=== PATIENT | male | born 1950 | race Caucasian/White ===

== ENCOUNTER 2017-08-15 13:28 | Inpatient (IN) | payer MEDICARE, MEDICAID ==
[~2017-08-15] VITALS: Ht 162.6 cm; Wt 78.0 kg
[~2017-08-15 13:28] MED LIST: ALBU18HF2 INH; ALLO100T PO; ASPI-611 PO; ATOR40TA PO; CLOP75TA15 PO; CYA500T PO; DOXA1TAB2 PO; ESCI10TA54 PO; HYDR-565 PO; LORA0.5T PO; METO25TA6 PO; OMEG1CAP13 PO
[2017-08-15 14:26] LABS: MEAN CORPUSCULAR HEMOGLOBIN 29.3 PG (27.0-31.0); MEAN CORPUSCULAR HGB CONC 34.4 % (33.0-36.5); MEAN CORPUSCULAR VOLUME 85.1 FL (78-98); MEAN PLATELET VOLUME 8.9 FL (7.4-10.4); PLATELET COUNT 68 X10'3 (140-440); RED CELL DISTRIBUTION WIDTH 15.7 % (11.5-14.5)
[2017-08-15 14:35] LABS: PARTIAL THROMBOPLASTIN TIME 33 SECONDS (22-32)
[2017-08-15 14:39] LABS: ALANINE AMINOTRANSFERASE 96 U/L (12-78); ALBUMIN 2.6 G/DL (3.4-5.0); ALBUMIN/GLOBULIN RATIO 0.7 (1.1-1.5); ALKALINE PHOSPHATASE 318 IU/L (46-116); ANION GAP 14 (8-16); ASPARTATE AMINO TRANSFERASE 165 U/L (10-37); BILIRUBIN,TOTAL 8.4 MG/DL (0.1-1.0); BLOOD UREA NITROGEN 163 MG/DL (7-18); CALCIUM 8.4 MG/DL (8.5-10.1); CHLORIDE 96 MMOL/L (99-107); CREATININE 4.94 MG/DL (0.60-1.10); GLUCOSE 120 MG/DL (70-104); LIPASE 888 U/L (73-393); POTASSIUM 3.8 MMOL/L (3.5-5.1); SODIUM 133 MMOL/L (135-145); TOTAL CARBON DIOXIDE 23.2 MMOL/L (24-32); TOTAL PROTEIN 6.4 G/DL (6.4-8.2); eGFR 12 ML/MIN
[2017-08-15 14:44] LABS: WHITE BLOOD COUNT 56.1 X10'3 (4.5-11.0)
[2017-08-15 15:11] LABS: ANISOCYTOSIS 1+; PLATELET ESTIMATE DECREASED
[2017-08-15 15:18] LABS: SMUDGE CELLS 2+
[2017-08-15] MEDS ORDERED: OMEG1CAP2 PO (15:22)
[2017-08-15] MEDS ORDERED: ASPI-1264 PO (15:23)
[2017-08-15 15:24] LABS: TOTAL CELLS COUNTED 100
[2017-08-15] MEDS ORDERED: BUDE10.2 INH (15:25)
[2017-08-15] MEDS ORDERED: DOXA1TAB2 PO (15:54)
[2017-08-15] MEDS ORDERED: NITR0.4T48 SL (15:56)
[2017-08-15] MEDS ORDERED: normal saline 1000ml 1,000 ML IV ONE (16:10)
[2017-08-15] MEDS ORDERED: LIDOcaine 2% 10ml TOPICAL JELLY (Urojet) MM ONE (16:15)
[2017-08-15] MEDS ORDERED: VENL-190 PO (16:18)
[2017-08-15] MEDS ORDERED: piperacillin/tazo 3.375gm/50ml 50 ML IV ONE (16:19)
[2017-08-15] MEDS ORDERED: AMOX-580 PO (16:19)
[2017-08-15] MEDS ORDERED: HYDROcodone/acetaminophen 5mg/325mg tablet PO PRN (16:35)
[2017-08-15] MEDS ORDERED: HYDROmorphone 1 mg/ml syringe IV PRN ×2 (16:35)
[2017-08-15] MEDS ORDERED: diphenhydrAMINE 50 mg/ml inj IV PRN (16:35)
[2017-08-15] MEDS ORDERED: acetaminophen 325mg tablet PO PRN (16:35)
[2017-08-15] MEDS ORDERED: mag hydrox/Alum hydrox/simeth 30ml oral suspension PO PRN (16:35)
[2017-08-15] MEDS ORDERED: magnesium hydroxide 30ml (MOM) UD suspension PO PRN (16:35)
[2017-08-15] MEDS ORDERED: metoclopramide 5 mg/ml inj IV PRN (16:35)
[2017-08-15] MEDS ORDERED: diphenhydrAMINE 25mg capsule PO PRN (16:35)
[2017-08-15] MEDS ORDERED: bisacodyl 10mg suppository rectal RC PRN (16:35)
[2017-08-15] MEDS ORDERED: acetaminophen 650mg rectal suppository RC PRN (16:35)
[2017-08-15] MEDS: ondansetron/PF 4mg/2ml inj IV PRN (17:08)
[2017-08-15] MEDS: azithromycin/NS 500mg/250ml 250 ML IV SCH (17:09)
[2017-08-15] MEDS: HYDROcodone/acetaminophen 10/325mg tab PO SCH (17:09)
[2017-08-15 17:28] LABS: HIV ANTIBODY 1&2 RAPID NON-REACTIVE (Neg)
[2017-08-15 17:51] LABS: ABG BASE EXCESS -4.7 mmol/L (-2.0-3.0); ABG HCO3 19.7 mmol/L (22.0-26.0); ABG OXYGEN SATURATION 94.6 % (95-98); ABG PCO2 (T) 32.6 mmHg (35.0-48.0); ABG PH (T) 7.397 (7.350-7.450); ABG PO2 (T) 80.1 mmHg (83-108); FCOHb 3.1 % (0.5-1.5); FMetHb 0.2 % (0.3-1.12); FO2Hb 91.5 % (94-100); PATIENT TEMPERATURE 36.6; TOTAL HEMOGLOBIN 8.1 G/dl (14.0-18.0)
[2017-08-15 17:52] LABS: INR 1.1 INR; PROTHROMBIN TIME 11.4 SECONDS (9.0-12.0)
[2017-08-15 17:53] LABS: CLARITY,URINE SLIGHTLY CLOUDY (Clear); COLOR,URINE AMBER (Yellow); GLUCOSE, URINE NEGATIVE (Neg); KETONES,URINE TRACE mg/dl (Neg); LEUKOCYTE ESTERASE ,URINE NEGATIVE (Neg); OCCULT BLOOD,URINE LARGE (Neg); PROTEIN,URINE >=300 mg/dl (Neg)
[2017-08-15 17:58] LABS: NITRITES, URINE NEGATIVE (Neg)
[2017-08-15 18:01] LABS: UA COLLECTION TYPE FOLEY CATH
[2017-08-15 18:03] LABS: BACTERIA,URINE FEW /HPF (Neg); SQUAMOUS EPITHELIAL CELL,UR FEW /LPF (FEW); WBC,URINE 0-4 /HPF (0-4)
[2017-08-15] MEDS: normal saline 1000ml 1,000 ML IV SCH (18:04)
[2017-08-15 18:24] LABS: LACTATE DEHYDROGENASE 3037 U/L (85-227); PHOSPHORUS 4.9 MG/DL (2.3-4.5)
[2017-08-15] MEDS: docusate sod 100mg capsule PO SCH (20:00)
[2017-08-15] MEDS: allopurinol 100mg tablet PO SCH (20:00)
[2017-08-15] MEDS: metoprolol tartrate 25mg tablet PO SCH (20:38)
[2017-08-15 21:38] VITALS: BP 149/78
[2017-08-15] MEDS: piperacillin-tazo 2.25gm/50ml 50 ML IV SCH (23:55)
[2017-08-16 00:25] VITALS: BP 137/74
[2017-08-16] MEDS: HYDROcodone/acetaminophen 10/325mg tab PO SCH ×4 (01:48→19:35)
[2017-08-16] MEDS: normal saline 1000ml 1,000 ML IV SCH (03:17)
[2017-08-16 06:38] LABS: BASOPHILS # (AUTO) 0.1 X10'3 (0-0.2); BASOPHILS % (AUTO) 0.2 % (0-1); EOSINOPHILS # (AUTO) 0.5 X10'3 (0-0.9); EOSINOPHILS % (AUTO) 1.1 % (0-6); HEMATOCRIT 23.7 % (42.0-52.0); HEMOGLOBIN 8.1 g/dl (14.0-17.9); LYMPHOCYTES # (AUTO) 28.1 X10'3 (1.1-4.8); LYMPHOCYTES % (AUTO) 59.8 % (21-51); MEAN CORPUSCULAR HEMOGLOBIN 29.4 PG (27.0-31.0); MEAN CORPUSCULAR VOLUME 86.5 FL (78-98); MEAN PLATELET VOLUME 9.4 FL (7.4-10.4); MONOCYTES # (AUTO) 1.2 X10'3 (0-0.9); MONOCYTES % (AUTO) 2.5 % (2-12); NEUTROPHILS # (AUTO) 17.2 X10'3 (1.8-7.7); NEUTROPHILS % (AUTO) 36.4 % (42-75); RED BLOOD COUNT 2.74 X10'6 (4.70-6.10); RED CELL DISTRIBUTION WIDTH 16.2 % (11.5-14.5)
[2017-08-16 06:40] LABS: ALANINE AMINOTRANSFERASE 85 U/L (12-78); ALBUMIN 2.1 G/DL (3.4-5.0); ALBUMIN/GLOBULIN RATIO 0.6 (1.1-1.5); ALKALINE PHOSPHATASE 239 IU/L (46-116); ANION GAP 16 (8-16); ASPARTATE AMINO TRANSFERASE 144 U/L (10-37); BLOOD UREA NITROGEN 164 MG/DL (7-18); BUN/CREATININE RATIO 29.8 (5.4-32.0); CALCIUM 7.8 MG/DL (8.5-10.1); CHLORIDE 100 MMOL/L (99-107); CREATININE 5.51 MG/DL (0.60-1.10); GLUCOSE 98 MG/DL (70-104); POTASSIUM 3.9 MMOL/L (3.5-5.1); SODIUM 134 MMOL/L (135-145); TOTAL CARBON DIOXIDE 18.5 MMOL/L (24-32); TOTAL PROTEIN 5.4 G/DL (6.4-8.2); eGFR 10 ML/MIN
[2017-08-16 07:00] VITALS: BP 145/75
[2017-08-16 07:29] LABS: NEUTROPHILS % (MANUAL) 32 % (42-75); PLATELET COUNT 50 X10'3 (140-440); TOTAL CELLS COUNTED 100; WHITE BLOOD COUNT 47.1 X10'3 (4.5-11.0)
[2017-08-16 07:30] LABS: ANISOCYTOSIS 1+; LYMPHOCYTES % (MANUAL) 68 % (21-51); PLATELET ESTIMATE DECREASED; POIKILOCYTOSIS 2+; SMUDGE CELLS 3+
[2017-08-16 07:31] LABS: BURR CELLS 2+; SCHISTOCYTES 1+
[2017-08-16] MEDS: fluticasone/vilanterol 200mcg/25mcg inhaler IH SCH (08:48)
[2017-08-16] MEDS: lactobacillus rhamnosus 10,000 MMU CELLS/CAPSULE PO SCH ×2 (08:56→17:44)
[2017-08-16] MEDS: metoprolol tartrate 25mg tablet PO SCH ×2 (08:56→19:33)
[2017-08-16] MEDS: docusate sod 100mg capsule PO SCH ×2 (08:56→19:37)
[2017-08-16] MEDS: pantoprazole 40 MG vial IV SCH (08:56)
[2017-08-16] MEDS: allopurinol 100mg tablet PO SCH ×2 (08:56→19:33)
[2017-08-16] MEDS: venlafaxine XR 75mg capsule (Q24H) PO SCH (08:56)
[2017-08-16] MEDS: piperacillin-tazo 2.25gm/50ml 50 ML IV SCH ×3 (08:57→23:48)
[2017-08-16] MEDS: ondansetron/PF 4mg/2ml inj IV PRN (09:22)
[2017-08-16 09:56] LABS: LIPASE 1004 U/L (73-393)
[2017-08-16] MEDS: azithromycin/NS 500mg/250ml 250 ML IV SCH (10:20)
[2017-08-16 11:00] VITALS: BP 117/58
[2017-08-16 15:17] LABS: ALBUMIN 2.1 G/DL (3.4-5.0); ANION GAP 12 (8-16); BLOOD UREA NITROGEN 178 MG/DL (7-18); CALCIUM 8.2 MG/DL (8.5-10.1); CHLORIDE 102 MMOL/L (99-107); CREATININE 5.94 MG/DL (0.60-1.10); GLUCOSE 97 MG/DL (70-104); POTASSIUM 4.3 MMOL/L (3.5-5.1); SODIUM 136 MMOL/L (135-145); TOTAL CARBON DIOXIDE 21.6 MMOL/L (24-32); eGFR 9 ML/MIN
[2017-08-16 15:30] LABS: CREATININE,URINE RANDOM 118.6 MG/DL
[2017-08-16 15:43] LABS: TOTAL PROTEIN,URINE RANDOM 725.6 MG/DL
[2017-08-16] MEDS: sodium chloride 0.45% 1,000 ML IV SCH ×2 (15:55→23:48)
[2017-08-16 17:01] LABS: CREATINE KINASE 258 U/L (39-308); LACTATE DEHYDROGENASE 2116 U/L (85-227)
[2017-08-16] MEDS: LORazepam 0.5 MG tablet PO PRN (17:44)
[2017-08-16 20:00] VITALS: BP 123/69
[2017-08-17] VITALS (9 sets, daily range): BP systolic 105–132; BP diastolic 59–69
[2017-08-17] MEDS: HYDROcodone/acetaminophen 10/325mg tab PO SCH ×4 (02:07→20:35)
[2017-08-17 05:56] LABS: BASOPHILS # (AUTO) 0.1 X10'3 (0-0.2); BASOPHILS % (AUTO) 0.2 % (0-1); EOSINOPHILS # (AUTO) 0.5 X10'3 (0-0.9); EOSINOPHILS % (AUTO) 0.9 % (0-6); LYMPHOCYTES # (AUTO) 28.6 X10'3 (1.1-4.8); LYMPHOCYTES % (AUTO) 55.6 % (21-51); MEAN CORPUSCULAR HEMOGLOBIN 29.2 PG (27.0-31.0); MEAN CORPUSCULAR HGB CONC 33.9 % (33.0-36.5); MEAN CORPUSCULAR VOLUME 86.3 FL (78-98); MEAN PLATELET VOLUME 9.6 FL (7.4-10.4); MONOCYTES # (AUTO) 1.4 X10'3 (0-0.9); MONOCYTES % (AUTO) 2.7 % (2-12); NEUTROPHILS # (AUTO) 20.9 X10'3 (1.8-7.7); NEUTROPHILS % (AUTO) 40.6 % (42-75); PLATELET COUNT 64 X10'3 (140-440); RED BLOOD COUNT 2.39 X10'6 (4.70-6.10); RED CELL DISTRIBUTION WIDTH 16.2 % (11.5-14.5)
[2017-08-17 06:38] LABS: HEMATOCRIT 20.6 % (42.0-52.0); WHITE BLOOD COUNT 51.5 X10'3 (4.5-11.0)
[2017-08-17 07:03] LABS: ALANINE AMINOTRANSFERASE 53 U/L (12-78); ALBUMIN/GLOBULIN RATIO 0.6 (1.1-1.5); ALKALINE PHOSPHATASE 205 IU/L (46-116); ANION GAP 16 (8-16); ASPARTATE AMINO TRANSFERASE 100 U/L (10-37); BILIRUBIN,TOTAL 3.6 MG/DL (0.1-1.0); BLOOD UREA NITROGEN 174 MG/DL (7-18); BUN/CREATININE RATIO 25.8 (5.4-32.0); CALCIUM 7.9 MG/DL (8.5-10.1); CHLORIDE 98 MMOL/L (99-107); CREATININE 6.74 MG/DL (0.60-1.10); GLUCOSE 82 MG/DL (70-104); LACTATE DEHYDROGENASE 1403 U/L (85-227); SODIUM 132 MMOL/L (135-145); TOTAL CARBON DIOXIDE 18.3 MMOL/L (24-32); TOTAL PROTEIN 5.2 G/DL (6.4-8.2); eGFR 8 ML/MIN
[2017-08-17] MEDS ORDERED: heparin 1,000 units/ml 10ml inj HE ONE ×3 (08:00→14:50)
[2017-08-17 08:27] LABS: ANISOCYTOSIS 1+; BURR CELLS 2+; PLATELET ESTIMATE DECREASED; POIKILOCYTOSIS 2+; SCHISTOCYTES 1+; SMUDGE CELLS 2+; TOTAL CELLS COUNTED 100
[2017-08-17 08:29] LABS: TOXIC GRANULATION 1+
[2017-08-17] MEDS: sodium chloride 0.45% 1,000 ML IV SCH (08:31)
[2017-08-17] MEDS: allopurinol 100mg tablet PO SCH ×2 (08:32→20:35)
[2017-08-17] MEDS: azithromycin/NS 500mg/250ml 250 ML IV SCH (08:32)
[2017-08-17] MEDS: pantoprazole 40 MG vial IV SCH (08:32)
[2017-08-17] MEDS: venlafaxine XR 75mg capsule (Q24H) PO SCH (08:33)
[2017-08-17] MEDS: docusate sod 100mg capsule PO SCH ×2 (08:33→20:00)
[2017-08-17] MEDS: metoprolol tartrate 25mg tablet PO SCH ×2 (08:33→20:35)
[2017-08-17] MEDS: fluticasone/vilanterol 200mcg/25mcg inhaler IH SCH (08:41)
[2017-08-17] MEDS: ondansetron/PF 4mg/2ml inj IV PRN (08:44)
[2017-08-17] MEDS: piperacillin-tazo 2.25gm/50ml 50 ML IV SCH ×3 (10:46→23:11)
[2017-08-17 11:11] LABS: HBSAG SCREEN Negative (Negative); HEP A AB, IGM Negative (Negative); HEP B CORE AB, IGM Negative (Negative); HEP B CORE AB, TOT Negative (Negative); HEPATITIS C ANTIBODY <0.1 s/co ratio (0.0-0.9)
[2017-08-17] MEDS ORDERED: heparin 1,000 units/ml 10ml inj IV ONE ×2 (14:25→15:30)
[2017-08-17] MEDS ORDERED: heparin 1,000unit/ml 10ml vial 0 ML ONE (14:29)
[2017-08-17] MEDS: LACTOBACILLUS RHAMNOSUS GG 15 billion unit sprinkle caps PO SCH (14:43)
[2017-08-17] MEDS ORDERED: normal saline 1000ml 100 ML IV PRN (14:46)
[2017-08-17] MEDS ORDERED: albumin (human) 25% 100ml IV 100 ML IV PRN (14:50)
[2017-08-17 21:19] LABS: OCCULT BLOOD STOOL NEGATIVE (Neg)
[2017-08-17] MEDS: sodium bicarbonate (8.4%) inj. 50 MEQ in sodium chloride 0.45% 1,000 ML IV SCH (23:00)
[2017-08-17 23:43] LABS: UREA NITROGEN 24HR,URINE 0.6 GM/24HR (7-20)
[2017-08-18] VITALS (9 sets, daily range): BP systolic 111–145; BP diastolic 59–76
[2017-08-18] MEDS: sodium bicarbonate (8.4%) inj. 50 MEQ in sodium chloride 0.45% 1,000 ML IV SCH ×4 (02:04→20:40)
[2017-08-18] MEDS: HYDROcodone/acetaminophen 10/325mg tab PO SCH ×4 (02:05→20:43)
[2017-08-18 06:14] LABS: HEMATOCRIT 27.8 % (42.0-52.0); HEMOGLOBIN 9.3 g/dl (14.0-17.9); MEAN CORPUSCULAR HEMOGLOBIN 29.3 PG (27.0-31.0); MEAN CORPUSCULAR HGB CONC 33.6 % (33.0-36.5); MEAN CORPUSCULAR VOLUME 87.4 FL (78-98); MEAN PLATELET VOLUME 9.6 FL (7.4-10.4); PLATELET COUNT 77 X10'3 (140-440); RED BLOOD COUNT 3.18 X10'6 (4.70-6.10); RED CELL DISTRIBUTION WIDTH 15.8 % (11.5-14.5)
[2017-08-18 06:41] LABS: WHITE BLOOD COUNT 55.8 X10'3 (4.5-11.0)
[2017-08-18 07:07] LABS: ALANINE AMINOTRANSFERASE 48 U/L (12-78); ALBUMIN 1.9 G/DL (3.4-5.0); ALBUMIN/GLOBULIN RATIO 0.6 (1.1-1.5); ALKALINE PHOSPHATASE 184 IU/L (46-116); ANION GAP 19 (8-16); ASPARTATE AMINO TRANSFERASE 74 U/L (10-37); BILIRUBIN,TOTAL 3.3 MG/DL (0.1-1.0); BLOOD UREA NITROGEN 190 MG/DL (7-18); BUN/CREATININE RATIO 24.3 (5.4-32.0); CALCIUM 7.6 MG/DL (8.5-10.1); CHLORIDE 98 MMOL/L (99-107); CREATININE 7.83 MG/DL (0.60-1.10); GLUCOSE 93 MG/DL (70-104); POTASSIUM 4.2 MMOL/L (3.5-5.1); SODIUM 133 MMOL/L (135-145); TOTAL CARBON DIOXIDE 15.7 MMOL/L (24-32); TOTAL PROTEIN 5.2 G/DL (6.4-8.2); eGFR 7 ML/MIN
[2017-08-18 07:35] LABS: ANISOCYTOSIS 1+; PLATELET ESTIMATE DECREASED; SMUDGE CELLS 2+; TOTAL CELLS COUNTED 100
[2017-08-18 07:36] LABS: ACANTHOCYTES 1+; SCHISTOCYTES 1+
[2017-08-18 07:37] LABS: BURR CELLS 1+; POLYCHROMASIA 1+
[2017-08-18] MEDS: docusate sod 100mg capsule PO SCH (08:00)
[2017-08-18] MEDS ORDERED: heparin 1,000 units/ml 10ml inj HE ONE ×2 (08:00)
[2017-08-18] MEDS ORDERED: heparin 1,000 units/ml 10ml inj IV ONE (08:00)
[2017-08-18] MEDS ORDERED: mannitol 20% 250ml solution IV ONE (08:00)
[2017-08-18] MEDS: heparin 1,000 units/ml 10ml inj IV ONE ×2 (08:00→09:17)
[2017-08-18] MEDS: metoprolol tartrate 25mg tablet PO SCH ×2 (08:04→20:43)
[2017-08-18] MEDS: LACTOBACILLUS RHAMNOSUS GG 15 billion unit sprinkle caps PO SCH (08:04)
[2017-08-18] MEDS: allopurinol 100mg tablet PO SCH ×2 (08:04→20:42)
[2017-08-18] MEDS: pantoprazole 40 MG vial IV SCH (08:04)
[2017-08-18] MEDS: venlafaxine XR 75mg capsule (Q24H) PO SCH (08:04)
[2017-08-18] MEDS: piperacillin-tazo 2.25gm/50ml 50 ML IV SCH (08:05)
[2017-08-18] MEDS: fluticasone/vilanterol 200mcg/25mcg inhaler IH SCH (08:52)
[2017-08-18] MEDS: azithromycin/NS 500mg/250ml 250 ML IV SCH (09:16)
[2017-08-18] MEDS ORDERED: calcium chloride inj. 2,000 MG in normal saline 250ml IV soln 250 ML IV ONE (09:20)
[2017-08-18] MEDS ORDERED: citrate dextrose 1000ml IV sol 1,000 ML HE ONE (09:20)
[2017-08-18 13:07] LABS: ABSOLUTE RETICS # 122.5 X10'3 uL (32.5-133.0); RETICULOCYTE % (AUTO) 3.8 % (0.5-2.3)
[2017-08-18 15:11] LABS: A/G RATIO 1.1 (0.7-1.7); ALBUMIN 2.4 g/dL (2.9-4.4); BETA GLOBULIN 0.7 g/dL (0.7-1.3); GAMMA GLOBULIN 0.6 g/dL (0.4-1.8); GLOBULIN, TOTAL 2.1 g/dL (2.2-3.9); M-SPIKE Not Observed g/dL (Not Observed); PROTEIN, TOTAL, SERUM 4.5 g/dL (6.0-8.5)
[2017-08-19] VITALS (13 sets, daily range): BP systolic 97–156; BP diastolic 63–73
[2017-08-19] MEDS: HYDROcodone/acetaminophen 10/325mg tab PO SCH ×5 (03:07→22:41)
[2017-08-19] MEDS: sodium bicarbonate (8.4%) inj. 50 MEQ in sodium chloride 0.45% 1,000 ML IV SCH (03:08)
[2017-08-19 05:24] LABS: BASOPHILS % (AUTO) 0.1 % (0-1); EOSINOPHILS # (AUTO) 0.5 X10'3 (0-0.9); EOSINOPHILS % (AUTO) 1.2 % (0-6); HEMATOCRIT 22.9 % (42.0-52.0); HEMOGLOBIN 7.8 g/dl (14.0-17.9); LYMPHOCYTES # (AUTO) 24.7 X10'3 (1.1-4.8); LYMPHOCYTES % (AUTO) 58.9 % (21-51); MEAN CORPUSCULAR HEMOGLOBIN 29.6 PG (27.0-31.0); MEAN CORPUSCULAR HGB CONC 33.9 % (33.0-36.5); MEAN CORPUSCULAR VOLUME 87.1 FL (78-98); MEAN PLATELET VOLUME 10.8 FL (7.4-10.4); MONOCYTES # (AUTO) 1.4 X10'3 (0-0.9); MONOCYTES % (AUTO) 3.4 % (2-12); NEUTROPHILS # (AUTO) 15.2 X10'3 (1.8-7.7); NEUTROPHILS % (AUTO) 36.4 % (42-75); PLATELET COUNT 96 X10'3 (140-440); RED BLOOD COUNT 2.63 X10'6 (4.70-6.10); RED CELL DISTRIBUTION WIDTH 15.7 % (11.5-14.5)
[2017-08-19 05:58] LABS: WHITE BLOOD COUNT 41.9 X10'3 (4.5-11.0)
[2017-08-19 06:14] LABS: ALANINE AMINOTRANSFERASE 27 U/L (12-78); ALBUMIN 2.1 G/DL (3.4-5.0); ALBUMIN/GLOBULIN RATIO 0.8 (1.1-1.5); ALKALINE PHOSPHATASE 122 IU/L (46-116); ANION GAP 10 (8-16); ASPARTATE AMINO TRANSFERASE 42 U/L (10-37); BILIRUBIN,TOTAL 1.9 MG/DL (0.1-1.0); BLOOD UREA NITROGEN 93 MG/DL (7-18); BUN/CREATININE RATIO 17.8 (5.4-32.0); CALCIUM 7.9 MG/DL (8.5-10.1); CHLORIDE 99 MMOL/L (99-107); CREATININE 5.23 MG/DL (0.60-1.10); GLUCOSE 108 MG/DL (70-104); POTASSIUM 3.4 MMOL/L (3.5-5.1); SODIUM 135 MMOL/L (135-145); TOTAL CARBON DIOXIDE 26.3 MMOL/L (24-32); TOTAL PROTEIN 4.7 G/DL (6.4-8.2); eGFR 11 ML/MIN
[2017-08-19 07:23] LABS: MICROCYTOSIS 1+; NUCLEATED RED BLOOD CELLS 1 /100WBC (0-0); PLATELET ESTIMATE DECREASED; TOTAL CELLS COUNTED 100
[2017-08-19 07:24] LABS: HYPOCHROMASIA 1+
[2017-08-19 07:25] LABS: POLYCHROMASIA 1+; SCHISTOCYTES 1+
[2017-08-19] MEDS: fluticasone/vilanterol 200mcg/25mcg inhaler IH SCH (07:30)
[2017-08-19] MEDS: pantoprazole 40 MG vial IV SCH (07:40)
[2017-08-19] MEDS: LACTOBACILLUS RHAMNOSUS GG 15 billion unit sprinkle caps PO SCH (07:40)
[2017-08-19] MEDS: venlafaxine XR 75mg capsule (Q24H) PO SCH (07:41)
[2017-08-19] MEDS: metoprolol tartrate 25mg tablet PO SCH ×2 (07:41→19:26)
[2017-08-19] MEDS: allopurinol 100mg tablet PO SCH ×2 (07:41→19:25)
[2017-08-19] MEDS ORDERED: citrate dextrose 1000ml IV sol 1,000 ML HE ONE (08:55)
[2017-08-19] MEDS ORDERED: calcium chloride inj. 2,000 MG in normal saline 250ml IV soln 250 ML IV ONE (08:55)
[2017-08-19] MEDS ORDERED: heparin 1,000unit/ml 10ml vial 10 ML IV ONE (08:56)
[2017-08-19] MEDS ORDERED: epoetin 20,000 units/ml inj IV ONE (09:00)
[2017-08-19] MEDS ORDERED: heparin 1,000 units/ml 10ml inj HE ONE ×2 (09:00)
[2017-08-19] MEDS ORDERED: traMADol 50MG tablet PO PRN (10:15)
[2017-08-19] MEDS: ondansetron/PF 4mg/2ml inj IV PRN ×2 (10:17→18:23)
[2017-08-19 11:09] LABS: COMPLEMENT C3, SERUM 118 mg/dL (82-167); COMPLEMENT C4, SERUM 22 mg/dL (14-44)
[2017-08-19 16:14] LABS: BASOPHILS # (AUTO) 0.1 X10'3 (0-0.2); BASOPHILS % (AUTO) 0.1 % (0-1); EOSINOPHILS # (AUTO) 0.4 X10'3 (0-0.9); EOSINOPHILS % (AUTO) 1.2 % (0-6); HEMOGLOBIN 7.3 g/dl (14.0-17.9); LYMPHOCYTES # (AUTO) 20.1 X10'3 (1.1-4.8); LYMPHOCYTES % (AUTO) 54.5 % (21-51); MEAN CORPUSCULAR HEMOGLOBIN 29.8 PG (27.0-31.0); MEAN CORPUSCULAR HGB CONC 34.3 % (33.0-36.5); MEAN CORPUSCULAR VOLUME 86.8 FL (78-98); MEAN PLATELET VOLUME 10.6 FL (7.4-10.4); MONOCYTES % (AUTO) 2.7 % (2-12); NEUTROPHILS # (AUTO) 15.3 X10'3 (1.8-7.7); NEUTROPHILS % (AUTO) 41.5 % (42-75); PLATELET COUNT 92 X10'3 (140-440); RED BLOOD COUNT 2.44 X10'6 (4.70-6.10); RED CELL DISTRIBUTION WIDTH 15.6 % (11.5-14.5)
[2017-08-19 16:24] LABS: WHITE BLOOD COUNT 36.9 X10'3 (4.5-11.0)
[2017-08-19 16:25] LABS: HEMATOCRIT 21.2 % (42.0-52.0)
[2017-08-19 17:10] LABS: ANTINUCLEAR ANTIBODIES Negative (Negative)
[2017-08-20] VITALS: BP 144/75
[2017-08-20] MEDS: HYDROcodone/acetaminophen 10/325mg tab PO SCH ×4 (02:00→20:02)
[2017-08-20 06:15] LABS: BASOPHILS # (AUTO) 0.1 X10'3 (0-0.2); BASOPHILS % (AUTO) 0.3 % (0-1); EOSINOPHILS # (AUTO) 0.5 X10'3 (0-0.9); EOSINOPHILS % (AUTO) 1.1 % (0-6); HEMATOCRIT 27.6 % (42.0-52.0); HEMOGLOBIN 9.4 g/dl (14.0-17.9); LYMPHOCYTES # (AUTO) 22.7 X10'3 (1.1-4.8); LYMPHOCYTES % (AUTO) 53.9 % (21-51); MEAN CORPUSCULAR HEMOGLOBIN 29.8 PG (27.0-31.0); MEAN CORPUSCULAR HGB CONC 33.9 % (33.0-36.5); MEAN CORPUSCULAR VOLUME 87.7 FL (78-98); MEAN PLATELET VOLUME 9.9 FL (7.4-10.4); MONOCYTES # (AUTO) 1.7 X10'3 (0-0.9); MONOCYTES % (AUTO) 4.1 % (2-12); NEUTROPHILS # (AUTO) 17.1 X10'3 (1.8-7.7); NEUTROPHILS % (AUTO) 40.6 % (42-75); PLATELET COUNT 127 X10'3 (140-440); RED BLOOD COUNT 3.15 X10'6 (4.70-6.10); RED CELL DISTRIBUTION WIDTH 15.8 % (11.5-14.5)
[2017-08-20 06:29] LABS: WHITE BLOOD COUNT 42.2 X10'3 (4.5-11.0)
[2017-08-20 06:48] LABS: ALANINE AMINOTRANSFERASE 33 U/L (12-78); ALBUMIN 2.5 G/DL (3.4-5.0); ALBUMIN/GLOBULIN RATIO 0.9 (1.1-1.5); ALKALINE PHOSPHATASE 93 IU/L (46-116); ANION GAP 8 (8-16); ASPARTATE AMINO TRANSFERASE 37 U/L (10-37); BILIRUBIN,TOTAL 2.2 MG/DL (0.1-1.0); BLOOD UREA NITROGEN 47 MG/DL (7-18); BUN/CREATININE RATIO 11.3 (5.4-32.0); CALCIUM 7.8 MG/DL (8.5-10.1); CHLORIDE 102 MMOL/L (99-107); CREATININE 4.16 MG/DL (0.60-1.10); GLUCOSE 98 MG/DL (70-104); POTASSIUM 3.7 MMOL/L (3.5-5.1); SODIUM 138 MMOL/L (135-145); TOTAL CARBON DIOXIDE 27.8 MMOL/L (24-32); TOTAL PROTEIN 5.3 G/DL (6.4-8.2); eGFR 14 ML/MIN
[2017-08-20] MEDS: fluticasone/vilanterol 200mcg/25mcg inhaler IH SCH (07:09)
[2017-08-20 07:24] VITALS: BP 114/58
[2017-08-20 07:25] LABS: ANISOCYTOSIS 1+; LARGE PLATELETS FEW; MICROCYTOSIS 1+; PLATELET ESTIMATE DECREASED; POLYCHROMASIA FEW; SCHISTOCYTES 1+; TOTAL CELLS COUNTED 100
[2017-08-20] MEDS: venlafaxine XR 75mg capsule (Q24H) PO SCH (08:42)
[2017-08-20] MEDS: allopurinol 100mg tablet PO SCH ×2 (08:42→20:02)
[2017-08-20] MEDS: LACTOBACILLUS RHAMNOSUS GG 15 billion unit sprinkle caps PO SCH (08:42)
[2017-08-20] MEDS: metoprolol tartrate 25mg tablet PO SCH ×2 (08:42→20:01)
[2017-08-20] MEDS: pantoprazole 40 MG vial IV SCH (08:43)
[2017-08-20] MEDS ORDERED: calcium chloride inj. 2,000 MG in normal saline 250ml IV soln 250 ML IV ONE (09:00)
[2017-08-20] MEDS ORDERED: citrate dextrose 1000ml IV sol 1,000 ML HE ONE (09:00)
[2017-08-20] MEDS ORDERED: heparin 1,000 units/ml 10ml inj IV ONE (09:45)
[2017-08-20] MEDS ORDERED: heparin 1,000 units/ml 10ml inj HE ONE (09:50)
[2017-08-20 11:00] VITALS: BP 136/73
[2017-08-20 15:07] LABS: HAPTOGLOBIN <10 mg/dL (34-200)
[2017-08-20 15:21] LABS: BASOPHILS # (AUTO) 0.1 X10'3 (0-0.2); BASOPHILS % (AUTO) 0.2 % (0-1); EOSINOPHILS # (AUTO) 0.7 X10'3 (0-0.9); EOSINOPHILS % (AUTO) 1.5 % (0-6); HEMATOCRIT 29.1 % (42.0-52.0); HEMOGLOBIN 9.6 g/dl (14.0-17.9); LYMPHOCYTES # (AUTO) 23.4 X10'3 (1.1-4.8); MEAN CORPUSCULAR HEMOGLOBIN 29.6 PG (27.0-31.0); MEAN CORPUSCULAR HGB CONC 33.1 % (33.0-36.5); MEAN CORPUSCULAR VOLUME 89.3 FL (78-98); MEAN PLATELET VOLUME 8.8 FL (7.4-10.4); MONOCYTES # (AUTO) 1.9 X10'3 (0-0.9); MONOCYTES % (AUTO) 4.2 % (2-12); NEUTROPHILS # (AUTO) 18.2 X10'3 (1.8-7.7); NEUTROPHILS % (AUTO) 41.1 % (42-75); PLATELET COUNT 146 X10'3 (140-440); RED BLOOD COUNT 3.26 X10'6 (4.70-6.10); RED CELL DISTRIBUTION WIDTH 15.9 % (11.5-14.5)
[2017-08-20 15:25] LABS: WHITE BLOOD COUNT 44.2 X10'3 (4.5-11.0)
[2017-08-20 20:00] VITALS: BP 130/69
[2017-08-20] MEDS: albuterol 2.5 MG/3 ML nebule NEB PRN (23:05)
[2017-08-21] VITALS: BP_SYST 129; BP_SYST 130; BP_DIAS 69; BP_DIAS 72
[2017-08-21] MEDS: HYDROcodone/acetaminophen 10/325mg tab PO SCH ×2 (02:05→08:00)
[2017-08-21 07:00] VITALS: BP 155/86
[2017-08-21] MEDS: fluticasone/vilanterol 200mcg/25mcg inhaler IH SCH (07:27)
[2017-08-21] MEDS ORDERED: pantoprazole 40mg Tablet.DR PO SCH (07:30)
[2017-08-21] MEDS: LACTOBACILLUS RHAMNOSUS GG 15 billion unit sprinkle caps PO SCH (07:30)
[2017-08-21] MEDS: venlafaxine XR 75mg capsule (Q24H) PO SCH (08:00)
[2017-08-21] MEDS: allopurinol 100mg tablet PO SCH ×2 (08:00→21:07)
[2017-08-21] MEDS ORDERED: cefTRIAXone 1g/NS 100ml IVPB 100 ML IV SCH (08:00)
[2017-08-21] MEDS ORDERED: calcium chloride inj. 2,000 MG in normal saline 250ml IV soln 250 ML IV ONE (08:00)
[2017-08-21] MEDS ORDERED: citrate dextrose 1000ml IV sol 1,000 ML HE ONE (08:00)
[2017-08-21] MEDS: metoprolol tartrate 25mg tablet PO SCH ×2 (08:00→21:06)
[2017-08-21] MEDS ORDERED: heparin 1,000unit/ml 10ml vial 10 ML IV ONE (08:00)
[2017-08-21] MEDS: ondansetron/PF 4mg/2ml inj IV PRN (08:24)
[2017-08-21 09:41] LABS: ALANINE AMINOTRANSFERASE 40 U/L (12-78); ALBUMIN 2.7 G/DL (3.4-5.0); ALKALINE PHOSPHATASE 123 IU/L (46-116); ANION GAP 8 (8-16); ASPARTATE AMINO TRANSFERASE 35 U/L (10-37); BILIRUBIN,TOTAL 1.6 MG/DL (0.1-1.0); BLOOD UREA NITROGEN 53 MG/DL (7-18); BUN/CREATININE RATIO 9.4 (5.4-32.0); CALCIUM 8.5 MG/DL (8.5-10.1); CHLORIDE 101 MMOL/L (99-107); CREATININE 5.65 MG/DL (0.60-1.10); GLUCOSE 151 MG/DL (70-104); LACTATE DEHYDROGENASE 326 U/L (85-227); POTASSIUM 3.6 MMOL/L (3.5-5.1); SODIUM 139 MMOL/L (135-145); TOTAL CARBON DIOXIDE 29.7 MMOL/L (24-32); TOTAL PROTEIN 5.5 G/DL (6.4-8.2); eGFR 10 ML/MIN
[2017-08-21] MEDS ORDERED: pantoprazole 40 MG vial IV SCH (09:45)
[2017-08-21 11:00] VITALS: BP 150/80
[2017-08-21] MEDS ORDERED: ondansetron/PF 4mg/2ml inj IV PRN (11:35)
[2017-08-21 15:50] LABS: BASOPHILS % (AUTO) 0 % (0-1); EOSINOPHILS # (AUTO) 0.2 X10'3 (0-0.9); EOSINOPHILS % (AUTO) 0.5 % (0-6); HEMATOCRIT 27.1 % (42.0-52.0); HEMOGLOBIN 9.5 g/dl (14.0-17.9); LYMPHOCYTES # (AUTO) 20.8 X10'3 (1.1-4.8); LYMPHOCYTES % (AUTO) 56.2 % (21-51); MEAN CORPUSCULAR HEMOGLOBIN 31.1 PG (27.0-31.0); MEAN CORPUSCULAR HGB CONC 34.9 % (33.0-36.5); MEAN CORPUSCULAR VOLUME 89.2 FL (78-98); MEAN PLATELET VOLUME 9.1 FL (7.4-10.4); MONOCYTES # (AUTO) 1.3 X10'3 (0-0.9); MONOCYTES % (AUTO) 3.5 % (2-12); NEUTROPHILS # (AUTO) 14.7 X10'3 (1.8-7.7); NEUTROPHILS % (AUTO) 39.8 % (42-75); PLATELET COUNT 155 X10'3 (140-440); RED BLOOD COUNT 3.04 X10'6 (4.70-6.10); RED CELL DISTRIBUTION WIDTH 15.6 % (11.5-14.5)
[2017-08-21 16:30] LABS: TOTAL CELLS COUNTED 100
[2017-08-21 16:32] LABS: ANISOCYTOSIS 1+; PLATELET ESTIMATE NORMAL
[2017-08-21 16:33] LABS: SCHISTOCYTES FEW
[2017-08-21 16:34] LABS: POIKILOCYTOSIS 1+; SMUDGE CELLS 3+
[2017-08-21 16:35] LABS: POLYCHROMASIA 1+
[2017-08-21 19:00] VITALS: BP 139/84
[2017-08-21] MEDS: albuterol 2.5 MG/3 ML nebule NEB PRN (20:33)
[2017-08-21] MEDS: HYDROcodone/acetaminophen 10/325mg tab PO PRN (21:10)
[2017-08-21] MEDS: LORazepam 0.5 MG tablet PO PRN (21:10)
[2017-08-22 06:20] LABS: BASOPHILS # (AUTO) 0.1 X10'3 (0-0.2); BASOPHILS % (AUTO) 0.2 % (0-1); EOSINOPHILS # (AUTO) 0.5 X10'3 (0-0.9); EOSINOPHILS % (AUTO) 1.5 % (0-6); HEMATOCRIT 26.7 % (42.0-52.0); HEMOGLOBIN 8.9 g/dl (14.0-17.9); LYMPHOCYTES # (AUTO) 17.4 X10'3 (1.1-4.8); LYMPHOCYTES % (AUTO) 56.4 % (21-51); MEAN CORPUSCULAR HEMOGLOBIN 30.2 PG (27.0-31.0); MEAN CORPUSCULAR HGB CONC 33.4 % (33.0-36.5); MEAN CORPUSCULAR VOLUME 90.3 FL (78-98); MEAN PLATELET VOLUME 8.2 FL (7.4-10.4); MONOCYTES # (AUTO) 1.2 X10'3 (0-0.9); NEUTROPHILS # (AUTO) 11.7 X10'3 (1.8-7.7); NEUTROPHILS % (AUTO) 37.9 % (42-75); PLATELET COUNT 175 X10'3 (140-440); RED BLOOD COUNT 2.96 X10'6 (4.70-6.10); RED CELL DISTRIBUTION WIDTH 17.7 % (11.5-14.5)
[2017-08-22] MEDS ORDERED: calcium chloride inj. 2,000 MG in normal saline 250ml IV soln 250 ML IV ONE (06:45)
[2017-08-22] MEDS ORDERED: citrate dextrose 1000ml IV sol 1,000 ML HE ONE (06:45)
[2017-08-22 07:01] LABS: WHITE BLOOD COUNT 30.8 X10'3 (4.5-11.0)
[2017-08-22 07:09] LABS: ALANINE AMINOTRANSFERASE 37 U/L (12-78); ALBUMIN 2.6 G/DL (3.4-5.0); ALBUMIN/GLOBULIN RATIO 0.9 (1.1-1.5); ALKALINE PHOSPHATASE 95 IU/L (46-116); ANION GAP 8 (8-16); ASPARTATE AMINO TRANSFERASE 37 U/L (10-37); BILIRUBIN,TOTAL 1.4 MG/DL (0.1-1.0); BLOOD UREA NITROGEN 30 MG/DL (7-18); BUN/CREATININE RATIO 7.7 (5.4-32.0); CALCIUM 8.5 MG/DL (8.5-10.1); CHLORIDE 102 MMOL/L (99-107); CREATININE 3.89 MG/DL (0.60-1.10); GLUCOSE 125 MG/DL (70-104); LACTATE DEHYDROGENASE 266 U/L (85-227); POTASSIUM 3.3 MMOL/L (3.5-5.1); SODIUM 139 MMOL/L (135-145); TOTAL CARBON DIOXIDE 29.2 MMOL/L (24-32); TOTAL PROTEIN 5.4 G/DL (6.4-8.2); eGFR 15 ML/MIN
[2017-08-22 07:26] LABS: LYMPHOCYTES % (MANUAL) 57 % (21-51); NEUTROPHILS % (MANUAL) 39 % (42-75); TOTAL CELLS COUNTED 100
[2017-08-22 07:27] LABS: ANISOCYTOSIS 2+; MONOCYTES % (MANUAL) 4 % (2-12); PLATELET ESTIMATE NORMAL; POLYCHROMASIA 1+; SMUDGE CELLS 3+
[2017-08-22 07:36] VITALS: BP 134/86
[2017-08-22] MEDS: fluticasone/vilanterol 200mcg/25mcg inhaler IH SCH (08:21)
[2017-08-22] MEDS: LACTOBACILLUS RHAMNOSUS GG 15 billion unit sprinkle caps PO SCH (10:39)
[2017-08-22] MEDS: allopurinol 100mg tablet PO SCH ×2 (10:39→20:36)
[2017-08-22] MEDS: metoprolol tartrate 25mg tablet PO SCH ×2 (10:40→20:36)
[2017-08-22] MEDS: venlafaxine XR 75mg capsule (Q24H) PO SCH (10:40)
[2017-08-22] MEDS: pantoprazole 40mg Tablet.DR PO SCH (10:42)
[2017-08-22 11:00] VITALS: BP 159/76
[2017-08-22] MEDS: HYDROcodone/acetaminophen 10/325mg tab PO PRN (16:02)
[2017-08-22 19:00] VITALS: BP 141/71
[2017-08-22 20:14] LABS: BASOPHILS % (AUTO) 0.1 % (0-1); EOSINOPHILS # (AUTO) 0.5 X10'3 (0-0.9); EOSINOPHILS % (AUTO) 1.8 % (0-6); HEMATOCRIT 27.1 % (42.0-52.0); HEMOGLOBIN 9.1 g/dl (14.0-17.9); LYMPHOCYTES # (AUTO) 13.4 X10'3 (1.1-4.8); LYMPHOCYTES % (AUTO) 51.2 % (21-51); MEAN CORPUSCULAR HEMOGLOBIN 30.2 PG (27.0-31.0); MEAN CORPUSCULAR HGB CONC 33.5 % (33.0-36.5); MEAN CORPUSCULAR VOLUME 90.3 FL (78-98); MEAN PLATELET VOLUME 8.7 FL (7.4-10.4); MONOCYTES % (AUTO) 3.7 % (2-12); NEUTROPHILS # (AUTO) 11.3 X10'3 (1.8-7.7); NEUTROPHILS % (AUTO) 43.2 % (42-75); PLATELET COUNT 175 X10'3 (140-440); RED BLOOD COUNT 3.01 X10'6 (4.70-6.10); RED CELL DISTRIBUTION WIDTH 17.4 % (11.5-14.5)
[2017-08-22 20:17] LABS: WHITE BLOOD COUNT 26.2 X10'3 (4.5-11.0)
[2017-08-23] VITALS (14 sets, daily range): BP systolic 108–174; BP diastolic 69–94
[2017-08-23] MEDS: temazepam 15mg capsule PO PRN (01:25)
[2017-08-23 06:12] LABS: BASOPHILS # (AUTO) 0.1 X10'3 (0-0.2); BASOPHILS % (AUTO) 0.3 % (0-1); EOSINOPHILS # (AUTO) 0.4 X10'3 (0-0.9); EOSINOPHILS % (AUTO) 1.7 % (0-6); HEMATOCRIT 23.9 % (42.0-52.0); HEMOGLOBIN 7.9 g/dl (14.0-17.9); LYMPHOCYTES # (AUTO) 13.1 X10'3 (1.1-4.8); LYMPHOCYTES % (AUTO) 58.2 % (21-51); MEAN CORPUSCULAR HEMOGLOBIN 30.3 PG (27.0-31.0); MEAN CORPUSCULAR HGB CONC 33.3 % (33.0-36.5); MEAN CORPUSCULAR VOLUME 91.1 FL (78-98); MEAN PLATELET VOLUME 8.9 FL (7.4-10.4); MONOCYTES % (AUTO) 4.3 % (2-12); NEUTROPHILS % (AUTO) 35.5 % (42-75); PLATELET COUNT 157 X10'3 (140-440); RED BLOOD COUNT 2.62 X10'6 (4.70-6.10); WHITE BLOOD COUNT 22.4 X10'3 (4.5-11.0)
[2017-08-23 06:26] LABS: ALANINE AMINOTRANSFERASE 35 U/L (12-78); ALBUMIN 2.5 G/DL (3.4-5.0); ALKALINE PHOSPHATASE 96 IU/L (46-116); ANION GAP 6 (8-16); ASPARTATE AMINO TRANSFERASE 34 U/L (10-37); BILIRUBIN,TOTAL 1.1 MG/DL (0.1-1.0); BLOOD UREA NITROGEN 43 MG/DL (7-18); BUN/CREATININE RATIO 8.5 (5.4-32.0); CALCIUM 8.3 MG/DL (8.5-10.1); CHLORIDE 100 MMOL/L (99-107); CREATININE 5.03 MG/DL (0.60-1.10); GLUCOSE 91 MG/DL (70-104); LACTATE DEHYDROGENASE 220 U/L (85-227); POTASSIUM 3.6 MMOL/L (3.5-5.1); SODIUM 139 MMOL/L (135-145); TOTAL PROTEIN 4.9 G/DL (6.4-8.2); eGFR 11 ML/MIN
[2017-08-23] MEDS: venlafaxine XR 75mg capsule (Q24H) PO SCH (07:36)
[2017-08-23] MEDS: LACTOBACILLUS RHAMNOSUS GG 15 billion unit sprinkle caps PO SCH (07:37)
[2017-08-23] MEDS: allopurinol 100mg tablet PO SCH ×2 (07:37→20:30)
[2017-08-23] MEDS: pantoprazole 40mg Tablet.DR PO SCH (07:37)
[2017-08-23] MEDS: metoprolol tartrate 25mg tablet PO SCH ×2 (07:38→20:30)
[2017-08-23] MEDS ORDERED: normal saline 1000ml 100 ML IV PRN (07:49)
[2017-08-23] MEDS ORDERED: normal saline 1000ml 250 ML IV PRN (07:49)
[2017-08-23] MEDS ORDERED: epoetin 20,000 units/ml inj IV ONE (07:50)
[2017-08-23] MEDS: fluticasone/vilanterol 200mcg/25mcg inhaler IH SCH (08:20)
[2017-08-23] MEDS: HYDROcodone/acetaminophen 10/325mg tab PO PRN ×2 (13:16→20:29)
[2017-08-23] MEDS ORDERED: epoetin 20,000 units/ml inj IV SCH (14:40)
[2017-08-23] MEDS ORDERED: LIDOcaine 1%/PF (10mg/ml) 5ml vial ONE (15:11)
[2017-08-23] MEDS ORDERED: heparin 1,000 units/ml 10ml inj ICATH ONE (15:20)
[2017-08-23] MEDS ORDERED: heparin 1,000unit/ml 10ml vial 10 ML ONE (15:20)
[2017-08-23] MEDS ORDERED: fentaNYL/PF 50MCG/1 ML 2ML syringe IV PRN (15:20)
[2017-08-23] MEDS ORDERED: midazolam 2 mg/2 ml injection IV PRN (15:20)
[2017-08-23] MEDS ORDERED: LIDOcaine 1%/PF (10mg/ml) 5ml vial SQ ONE (15:20)
[2017-08-23] MEDS ORDERED: fentaNYL/PF 50MCG/1 ML 2ML syringe ONE ×2 (15:22→15:30)
[2017-08-23] MEDS ORDERED: midazolam 2 mg/2 ml injection ONE ×2 (15:22→15:30)
[2017-08-23] MEDS: heparin, porcine 5000 units/ml vial SQ SCH (20:32)
[2017-08-23 20:41] LABS: ABSOLUTE RETICS # 312600 /CUMM (23000-93000); BASOPHILS # (AUTO) 0.1 X10'3 (0-0.2); BASOPHILS % (AUTO) 0.2 % (0-1); EOSINOPHILS # (AUTO) 0.3 X10'3 (0-0.9); EOSINOPHILS % (AUTO) 1.3 % (0-6); HEMOGLOBIN 8.7 g/dl (14.0-17.9); LYMPHOCYTES # (AUTO) 11.8 X10'3 (1.1-4.8); LYMPHOCYTES % (AUTO) 55.9 % (21-51); MEAN CORPUSCULAR HEMOGLOBIN 30.5 PG (27.0-31.0); MEAN CORPUSCULAR HGB CONC 33.4 % (33.0-36.5); MEAN CORPUSCULAR VOLUME 91.2 FL (78-98); MEAN PLATELET VOLUME 8.4 FL (7.4-10.4); MONOCYTES # (AUTO) 0.9 X10'3 (0-0.9); MONOCYTES % (AUTO) 4.1 % (2-12); NEUTROPHILS # (AUTO) 8.2 X10'3 (1.8-7.7); NEUTROPHILS % (AUTO) 38.5 % (42-75); PLATELET COUNT 177 X10'3 (140-440); RED BLOOD COUNT 2.86 X10'6 (4.70-6.10); RETICULOCYTE % (AUTO) 10.9 % (0.5-1.5); WHITE BLOOD COUNT 21.2 X10'3 (4.5-11.0)
[2017-08-24] VITALS (10 sets, daily range): BP systolic 134–193; BP diastolic 81–97
[2017-08-24] MEDS: LORazepam 0.5 MG tablet PO PRN (04:20)
[2017-08-24 06:19] LABS: BASOPHILS # (AUTO) 0.1 X10'3 (0-0.2); BASOPHILS % (AUTO) 0.3 % (0-1); EOSINOPHILS # (AUTO) 0.4 X10'3 (0-0.9); EOSINOPHILS % (AUTO) 1.8 % (0-6); HEMATOCRIT 24.2 % (42.0-52.0); LYMPHOCYTES # (AUTO) 12.9 X10'3 (1.1-4.8); LYMPHOCYTES % (AUTO) 58.2 % (21-51); MEAN CORPUSCULAR HEMOGLOBIN 30.3 PG (27.0-31.0); MEAN CORPUSCULAR HGB CONC 33.1 % (33.0-36.5); MEAN CORPUSCULAR VOLUME 91.6 FL (78-98); MEAN PLATELET VOLUME 8.3 FL (7.4-10.4); MONOCYTES % (AUTO) 4.5 % (2-12); NEUTROPHILS # (AUTO) 7.8 X10'3 (1.8-7.7); NEUTROPHILS % (AUTO) 35.2 % (42-75); PLATELET COUNT 182 X10'3 (140-440); RED BLOOD COUNT 2.64 X10'6 (4.70-6.10); RED CELL DISTRIBUTION WIDTH 20.7 % (11.5-14.5); WHITE BLOOD COUNT 22.1 X10'3 (4.5-11.0)
[2017-08-24 06:36] LABS: ALANINE AMINOTRANSFERASE 25 U/L (12-78); ALBUMIN 2.5 G/DL (3.4-5.0); ALKALINE PHOSPHATASE 103 IU/L (46-116); ANION GAP 5 (8-16); ASPARTATE AMINO TRANSFERASE 28 U/L (10-37); BILIRUBIN,TOTAL 1.4 MG/DL (0.1-1.0); BLOOD UREA NITROGEN 29 MG/DL (7-18); BUN/CREATININE RATIO 7.6 (5.4-32.0); CALCIUM 8.1 MG/DL (8.5-10.1); CHLORIDE 101 MMOL/L (99-107); CREATININE 3.82 MG/DL (0.60-1.10); GLUCOSE 92 MG/DL (70-104); LACTATE DEHYDROGENASE 257 U/L (85-227); POTASSIUM 3.7 MMOL/L (3.5-5.1); SODIUM 136 MMOL/L (135-145); TOTAL CARBON DIOXIDE 29.6 MMOL/L (24-32); TOTAL PROTEIN 5.1 G/DL (6.4-8.2); eGFR 16 ML/MIN
[2017-08-24 06:58] LABS: ANISOCYTOSIS 3+; LYMPHOCYTES % (MANUAL) 64 % (21-51); MONOCYTES % (MANUAL) 6 % (2-12); NEUTROPHILS % (MANUAL) 30 % (42-75); PLATELET ESTIMATE NORMAL; SCHISTOCYTES 1+; SMUDGE CELLS 3+; TOTAL CELLS COUNTED 100
[2017-08-24] MEDS ORDERED: citrate dextrose 1000ml IV sol 1,000 ML HE ONE (08:00)
[2017-08-24] MEDS ORDERED: calcium chloride inj. 2,000 MG in normal saline 250ml IV soln 250 ML IV ONE (08:00)
[2017-08-24] MEDS: heparin, porcine 5000 units/ml vial SQ SCH (08:00)
[2017-08-24] MEDS: LACTOBACILLUS RHAMNOSUS GG 15 billion unit sprinkle caps PO SCH (08:15)
[2017-08-24] MEDS: venlafaxine XR 75mg capsule (Q24H) PO SCH (08:15)
[2017-08-24] MEDS: pantoprazole 40mg Tablet.DR PO SCH (08:16)
[2017-08-24] MEDS: allopurinol 100mg tablet PO SCH ×2 (08:16→20:16)
[2017-08-24] MEDS: metoprolol tartrate 25mg tablet PO SCH ×2 (08:19→20:15)
[2017-08-24] MEDS: HYDROcodone/acetaminophen 10/325mg tab PO PRN ×2 (08:22→20:15)
[2017-08-24] MEDS ORDERED: epoetin 20,000 units/ml inj IV ONE (09:00)
[2017-08-24] MEDS: albuterol 2.5 MG/3 ML nebule NEB PRN (09:05)
[2017-08-24] MEDS: fluticasone/vilanterol 200mcg/25mcg inhaler IH SCH (09:06)
[2017-08-24] MEDS: temazepam 15mg capsule PO PRN (23:38)
[2017-08-24 23:52] LABS: BASOPHILS # (AUTO) 0.1 X10'3 (0-0.2); BASOPHILS % (AUTO) 0.3 % (0-1); EOSINOPHILS # (AUTO) 0.5 X10'3 (0-0.9); EOSINOPHILS % (AUTO) 2.2 % (0-6); HEMATOCRIT 24.4 % (42.0-52.0); HEMOGLOBIN 8.1 g/dl (14.0-17.9); LYMPHOCYTES # (AUTO) 12.5 X10'3 (1.1-4.8); LYMPHOCYTES % (AUTO) 55.6 % (21-51); MEAN CORPUSCULAR HEMOGLOBIN 30.4 PG (27.0-31.0); MEAN CORPUSCULAR HGB CONC 33.3 % (33.0-36.5); MEAN CORPUSCULAR VOLUME 91.1 FL (78-98); MEAN PLATELET VOLUME 8.4 FL (7.4-10.4); MONOCYTES # (AUTO) 0.9 X10'3 (0-0.9); MONOCYTES % (AUTO) 4.1 % (2-12); NEUTROPHILS # (AUTO) 8.5 X10'3 (1.8-7.7); NEUTROPHILS % (AUTO) 37.8 % (42-75); PLATELET COUNT 167 X10'3 (140-440); RED BLOOD COUNT 2.67 X10'6 (4.70-6.10); RED CELL DISTRIBUTION WIDTH 18.8 % (11.5-14.5); WHITE BLOOD COUNT 22.5 X10'3 (4.5-11.0)
[2017-08-25] VITALS: BP 154/81
[2017-08-25 06:03] LABS: BASOPHILS # (AUTO) 0.1 X10'3 (0-0.2); BASOPHILS % (AUTO) 0.5 % (0-1); EOSINOPHILS # (AUTO) 0.6 X10'3 (0-0.9); HEMATOCRIT 24.8 % (42.0-52.0); HEMOGLOBIN 8.4 g/dl (14.0-17.9); LYMPHOCYTES # (AUTO) 12.5 X10'3 (1.1-4.8); LYMPHOCYTES % (AUTO) 58.9 % (21-51); MEAN CORPUSCULAR HEMOGLOBIN 30.7 PG (27.0-31.0); MEAN CORPUSCULAR HGB CONC 33.7 % (33.0-36.5); MEAN PLATELET VOLUME 10.4 FL (7.4-10.4); MONOCYTES # (AUTO) 0.9 X10'3 (0-0.9); MONOCYTES % (AUTO) 4.1 % (2-12); NEUTROPHILS # (AUTO) 7.1 X10'3 (1.8-7.7); NEUTROPHILS % (AUTO) 33.5 % (42-75); PLATELET COUNT 103 X10'3 (140-440); RED BLOOD COUNT 2.73 X10'6 (4.70-6.10); RED CELL DISTRIBUTION WIDTH 18.8 % (11.5-14.5); WHITE BLOOD COUNT 21.3 X10'3 (4.5-11.0)
[2017-08-25 06:25] LABS: ALANINE AMINOTRANSFERASE 32 U/L (12-78); ALBUMIN 2.8 G/DL (3.4-5.0); ALBUMIN/GLOBULIN RATIO 1.1 (1.1-1.5); ALKALINE PHOSPHATASE 80 IU/L (46-116); ANION GAP 5 (8-16); ASPARTATE AMINO TRANSFERASE 28 U/L (10-37); BILIRUBIN,TOTAL 1.3 MG/DL (0.1-1.0); BLOOD UREA NITROGEN 32 MG/DL (7-18); CALCIUM 8.5 MG/DL (8.5-10.1); CHLORIDE 102 MMOL/L (99-107); GLUCOSE 87 MG/DL (70-104); LACTATE DEHYDROGENASE 227 U/L (85-227); POTASSIUM 3.8 MMOL/L (3.5-5.1); SODIUM 139 MMOL/L (135-145); TOTAL CARBON DIOXIDE 31.9 MMOL/L (24-32); TOTAL PROTEIN 5.4 G/DL (6.4-8.2); eGFR 13 ML/MIN
[2017-08-25] MEDS ORDERED: epoetin 20,000 units/ml inj IV SCH (08:00)
[2017-08-25] MEDS ORDERED: normal saline 1000ml 250 ML IV PRN (08:00)
[2017-08-25] MEDS ORDERED: heparin 1,000 units/ml 10ml inj HE ONE ×2 (08:00)
[2017-08-25] MEDS: metoprolol tartrate 25mg tablet PO SCH ×2 (08:00→19:35)
[2017-08-25 08:14] VITALS: BP 154/82
[2017-08-25] MEDS: fluticasone/vilanterol 200mcg/25mcg inhaler IH SCH (09:07)
[2017-08-25] MEDS: albuterol 2.5 MG/3 ML nebule NEB PRN (09:07)
[2017-08-25] MEDS: pantoprazole 40mg Tablet.DR PO SCH (09:14)
[2017-08-25] MEDS: venlafaxine XR 75mg capsule (Q24H) PO SCH (09:14)
[2017-08-25] MEDS: LACTOBACILLUS RHAMNOSUS GG 15 billion unit sprinkle caps PO SCH (09:14)
[2017-08-25] MEDS: allopurinol 100mg tablet PO SCH ×2 (09:14→19:35)
[2017-08-25] MEDS: HYDROcodone/acetaminophen 10/325mg tab PO PRN ×3 (09:20→21:11)
[2017-08-25 11:42] VITALS: BP 145/75
[2017-08-25 20:00] VITALS: BP 141/85
[2017-08-25 23:41] VITALS: BP 139/82
[2017-08-26 06:39] LABS: ALANINE AMINOTRANSFERASE 30 U/L (12-78); ALBUMIN 2.7 G/DL (3.4-5.0); ALKALINE PHOSPHATASE 95 IU/L (46-116); ANION GAP 5 (8-16); ASPARTATE AMINO TRANSFERASE 27 U/L (10-37); BILIRUBIN,TOTAL 1.3 MG/DL (0.1-1.0); BLOOD UREA NITROGEN 19 MG/DL (7-18); BUN/CREATININE RATIO 5.1 (5.4-32.0); CALCIUM 7.9 MG/DL (8.5-10.1); CHLORIDE 102 MMOL/L (99-107); CREATININE 3.71 MG/DL (0.60-1.10); GLUCOSE 90 MG/DL (70-104); POTASSIUM 3.9 MMOL/L (3.5-5.1); SODIUM 138 MMOL/L (135-145); TOTAL CARBON DIOXIDE 31.1 MMOL/L (24-32); TOTAL PROTEIN 5.4 G/DL (6.4-8.2); eGFR 16 ML/MIN
[2017-08-26 06:41] LABS: BASOPHILS # (AUTO) 0.1 X10'3 (0-0.2); BASOPHILS % (AUTO) 0.4 % (0-1); EOSINOPHILS # (AUTO) 0.5 X10'3 (0-0.9); EOSINOPHILS % (AUTO) 2.7 % (0-6); HEMATOCRIT 24.5 % (42.0-52.0); HEMOGLOBIN 8.2 g/dl (14.0-17.9); LYMPHOCYTES # (AUTO) 10.3 X10'3 (1.1-4.8); LYMPHOCYTES % (AUTO) 59.3 % (21-51); MEAN CORPUSCULAR HEMOGLOBIN 30.3 PG (27.0-31.0); MEAN CORPUSCULAR HGB CONC 33.4 % (33.0-36.5); MEAN CORPUSCULAR VOLUME 90.6 FL (78-98); MEAN PLATELET VOLUME 8.4 FL (7.4-10.4); MONOCYTES # (AUTO) 0.9 X10'3 (0-0.9); MONOCYTES % (AUTO) 5.2 % (2-12); NEUTROPHILS # (AUTO) 5.6 X10'3 (1.8-7.7); NEUTROPHILS % (AUTO) 32.4 % (42-75); PLATELET COUNT 179 X10'3 (140-440); RED CELL DISTRIBUTION WIDTH 19.6 % (11.5-14.5); WHITE BLOOD COUNT 17.4 X10'3 (4.5-11.0)
[2017-08-26 07:00] VITALS: BP 161/91
[2017-08-26] MEDS ORDERED: citrate dextrose 1000ml IV sol 1,000 ML HE ONE (08:00)
[2017-08-26] MEDS ORDERED: calcium chloride inj. 2,000 MG in normal saline 250ml IV soln 250 ML IV ONE (08:00)
[2017-08-26] MEDS: LACTOBACILLUS RHAMNOSUS GG 15 billion unit sprinkle caps PO SCH (09:14)
[2017-08-26] MEDS: pantoprazole 40mg Tablet.DR PO SCH (09:14)
[2017-08-26] MEDS: venlafaxine XR 75mg capsule (Q24H) PO SCH (09:15)
[2017-08-26] MEDS: metoprolol tartrate 25mg tablet PO SCH ×2 (09:15→21:54)
[2017-08-26] MEDS: fluticasone/vilanterol 200mcg/25mcg inhaler IH SCH (09:16)
[2017-08-26] MEDS: allopurinol 100mg tablet PO SCH ×2 (09:16→21:54)
[2017-08-26] MEDS: HYDROcodone/acetaminophen 10/325mg tab PO PRN ×2 (09:19→23:56)
[2017-08-26 09:23] LABS: TOTAL CELLS COUNTED 100
[2017-08-26 09:25] LABS: ANISOCYTOSIS 2+; PLATELET ESTIMATE NORMAL; POIKILOCYTOSIS 1+; POLYCHROMASIA 1+; SMUDGE CELLS 2+
[2017-08-26 11:00] VITALS: BP 134/70
[2017-08-26 19:30] VITALS: BP 162/91
[2017-08-26] MEDS ORDERED: ondansetron 4mg rapidly disintigrating tab PO PRN (19:35)
[2017-08-26] MEDS: temazepam 15mg capsule PO PRN ×2 (21:53→23:56)
[2017-08-26] MEDS: LORazepam 0.5 MG tablet PO PRN (21:53)
[2017-08-27] VITALS: BP 149/84
[2017-08-27 07:06] VITALS: BP 158/79
[2017-08-27 07:07] LABS: BASOPHILS # (AUTO) 0.1 X10'3 (0-0.2); BASOPHILS % (AUTO) 0.5 % (0-1); EOSINOPHILS # (AUTO) 0.5 X10'3 (0-0.9); EOSINOPHILS % (AUTO) 3.9 % (0-6); HEMATOCRIT 22.5 % (42.0-52.0); HEMOGLOBIN 7.5 g/dl (14.0-17.9); LYMPHOCYTES % (AUTO) 60.3 % (21-51); MEAN CORPUSCULAR HEMOGLOBIN 30.4 PG (27.0-31.0); MEAN CORPUSCULAR HGB CONC 33.3 % (33.0-36.5); MEAN CORPUSCULAR VOLUME 91.3 FL (78-98); MEAN PLATELET VOLUME 7.8 FL (7.4-10.4); MONOCYTES # (AUTO) 0.9 X10'3 (0-0.9); MONOCYTES % (AUTO) 6.9 % (2-12); NEUTROPHILS # (AUTO) 3.8 X10'3 (1.8-7.7); NEUTROPHILS % (AUTO) 28.4 % (42-75); PLATELET COUNT 154 X10'3 (140-440); RED BLOOD COUNT 2.47 X10'6 (4.70-6.10); RED CELL DISTRIBUTION WIDTH 19.9 % (11.5-14.5); WHITE BLOOD COUNT 13.3 X10'3 (4.5-11.0)
[2017-08-27 07:23] LABS: ALANINE AMINOTRANSFERASE 27 U/L (12-78); ALBUMIN 2.8 G/DL (3.4-5.0); ALBUMIN/GLOBULIN RATIO 1.1 (1.1-1.5); ALKALINE PHOSPHATASE 77 IU/L (46-116); ANION GAP 5 (8-16); ASPARTATE AMINO TRANSFERASE 24 U/L (10-37); BILIRUBIN,TOTAL 1.1 MG/DL (0.1-1.0); BLOOD UREA NITROGEN 21 MG/DL (7-18); CALCIUM 8.6 MG/DL (8.5-10.1); CHLORIDE 101 MMOL/L (99-107); CREATININE 4.23 MG/DL (0.60-1.10); GLUCOSE 86 MG/DL (70-104); POTASSIUM 3.5 MMOL/L (3.5-5.1); SODIUM 139 MMOL/L (135-145); TOTAL CARBON DIOXIDE 33.3 MMOL/L (24-32); TOTAL PROTEIN 5.4 G/DL (6.4-8.2); eGFR 14 ML/MIN
[2017-08-27 08:06] LABS: ANISOCYTOSIS 2+; PLATELET ESTIMATE NORMAL; POIKILOCYTOSIS FEW; POLYCHROMASIA 2+; SCHISTOCYTES FEW
[2017-08-27] MEDS: LACTOBACILLUS RHAMNOSUS GG 15 billion unit sprinkle caps PO SCH (08:22)
[2017-08-27] MEDS: pantoprazole 40mg Tablet.DR PO SCH ×2 (08:22→19:21)
[2017-08-27] MEDS: allopurinol 100mg tablet PO SCH ×2 (08:23→19:20)
[2017-08-27] MEDS: metoprolol tartrate 25mg tablet PO SCH ×2 (08:23→19:22)
[2017-08-27] MEDS: venlafaxine XR 75mg capsule (Q24H) PO SCH (08:23)
[2017-08-27] MEDS: fluticasone/vilanterol 200mcg/25mcg inhaler IH SCH (10:02)
[2017-08-27] MEDS: tamsulosin 0.4mg capsule PO SCH (10:23)
[2017-08-27] MEDS: HYDROcodone/acetaminophen 10/325mg tab PO PRN ×2 (10:24→19:22)
[2017-08-27] MEDS ORDERED: epoetin 20,000 units/ml inj SQ ONE (11:00)
[2017-08-27 12:00] VITALS: BP 135/75
[2017-08-27] MEDS: LORazepam 0.5 MG tablet PO PRN (19:28)
[2017-08-27 19:30] VITALS: BP 144/87
[2017-08-27] MEDS ORDERED: tamsulosin 0.4mg capsule PO SCH (21:00)
[2017-08-27] MEDS: temazepam 15mg capsule PO PRN (21:23)
[2017-08-27 23:49] VITALS: BP 152/83
[2017-08-28 06:34] LABS: BASOPHILS % (AUTO) 0.3 % (0-1); EOSINOPHILS # (AUTO) 0.5 X10'3 (0-0.9); EOSINOPHILS % (AUTO) 3.6 % (0-6); HEMATOCRIT 23.5 % (42.0-52.0); HEMOGLOBIN 7.8 g/dl (14.0-17.9); LYMPHOCYTES # (AUTO) 8.1 X10'3 (1.1-4.8); LYMPHOCYTES % (AUTO) 60.8 % (21-51); MEAN CORPUSCULAR HEMOGLOBIN 30.3 PG (27.0-31.0); MEAN CORPUSCULAR HGB CONC 33.3 % (33.0-36.5); MEAN PLATELET VOLUME 7.9 FL (7.4-10.4); MONOCYTES # (AUTO) 0.9 X10'3 (0-0.9); MONOCYTES % (AUTO) 6.6 % (2-12); NEUTROPHILS # (AUTO) 3.8 X10'3 (1.8-7.7); NEUTROPHILS % (AUTO) 28.7 % (42-75); PLATELET COUNT 153 X10'3 (140-440); RED BLOOD COUNT 2.58 X10'6 (4.70-6.10); RED CELL DISTRIBUTION WIDTH 19.7 % (11.5-14.5); WHITE BLOOD COUNT 13.3 X10'3 (4.5-11.0)
[2017-08-28] MEDS: fluticasone/vilanterol 200mcg/25mcg inhaler IH SCH (06:49)
[2017-08-28 06:52] LABS: ALBUMIN 2.7 G/DL (3.4-5.0); ANION GAP 6 (8-16); BLOOD UREA NITROGEN 27 MG/DL (7-18); BUN/CREATININE RATIO 5.7 (5.4-32.0); CALCIUM 8.2 MG/DL (8.5-10.1); CHLORIDE 100 MMOL/L (99-107); CREATININE 4.73 MG/DL (0.60-1.10); GLUCOSE 84 MG/DL (70-104); LACTATE DEHYDROGENASE 176 U/L (85-227); POTASSIUM 3.4 MMOL/L (3.5-5.1); SODIUM 138 MMOL/L (135-145); TOTAL CARBON DIOXIDE 32.1 MMOL/L (24-32); eGFR 12 ML/MIN
[2017-08-28 08:00] VITALS: BP 168/86
[2017-08-28 08:31] LABS: OCCULT BLOOD STOOL NEGATIVE (Neg)
[2017-08-28] MEDS: metoprolol tartrate 25mg tablet PO SCH ×2 (08:37→20:55)
[2017-08-28] MEDS: allopurinol 100mg tablet PO SCH ×2 (08:38→21:00)
[2017-08-28] MEDS: tamsulosin 0.4mg capsule PO SCH (08:38)
[2017-08-28] MEDS: pantoprazole 40mg Tablet.DR PO SCH ×2 (08:41→20:55)
[2017-08-28] MEDS: venlafaxine XR 75mg capsule (Q24H) PO SCH (08:41)
[2017-08-28] MEDS: HYDROcodone/acetaminophen 10/325mg tab PO PRN ×2 (08:41→20:55)
[2017-08-28] MEDS: LACTOBACILLUS RHAMNOSUS GG 15 billion unit sprinkle caps PO SCH (08:43)
[2017-08-28 10:10] LABS: TOTAL CELLS COUNTED 100
[2017-08-28 10:13] LABS: ANISOCYTOSIS 2+; PLATELET ESTIMATE NORMAL
[2017-08-28 10:15] LABS: SMUDGE CELLS 4+
[2017-08-28 10:16] LABS: ELLIPTOCYTES FEW; POIKILOCYTOSIS FEW
[2017-08-28 10:17] LABS: POLYCHROMASIA 2+
[2017-08-28] MEDS ORDERED: normal saline 1000ml 250 ML IV PRN (10:57)
[2017-08-28] MEDS ORDERED: heparin 1,000 units/ml 10ml inj HE ONE ×2 (11:05)
[2017-08-28] MEDS: epoetin 20,000 units/ml inj IV SCH (12:05)
[2017-08-28 13:53] LABS: BASOPHILS % (AUTO) 0.2 % (0-1); EOSINOPHILS # (AUTO) 0.4 X10'3 (0-0.9); HEMATOCRIT 24.3 % (42.0-52.0); HEMOGLOBIN 8.1 g/dl (14.0-17.9); LYMPHOCYTES # (AUTO) 8.3 X10'3 (1.1-4.8); LYMPHOCYTES % (AUTO) 60.9 % (21-51); MEAN CORPUSCULAR HEMOGLOBIN 30.4 PG (27.0-31.0); MEAN CORPUSCULAR HGB CONC 33.2 % (33.0-36.5); MEAN CORPUSCULAR VOLUME 91.6 FL (78-98); MEAN PLATELET VOLUME 7.9 FL (7.4-10.4); MONOCYTES # (AUTO) 0.8 X10'3 (0-0.9); MONOCYTES % (AUTO) 5.7 % (2-12); NEUTROPHILS # (AUTO) 4.1 X10'3 (1.8-7.7); NEUTROPHILS % (AUTO) 30.2 % (42-75); PLATELET COUNT 159 X10'3 (140-440); RED BLOOD COUNT 2.65 X10'6 (4.70-6.10); WHITE BLOOD COUNT 13.7 X10'3 (4.5-11.0)
[2017-08-28 14:07] LABS: ALANINE AMINOTRANSFERASE 29 U/L (12-78); ALKALINE PHOSPHATASE 119 IU/L (46-116); ANION GAP 4 (8-16); ASPARTATE AMINO TRANSFERASE 28 U/L (10-37); BILIRUBIN,TOTAL 1.1 MG/DL (0.1-1.0); BLOOD UREA NITROGEN 16 MG/DL (7-18); BUN/CREATININE RATIO 5.6 (5.4-32.0); CALCIUM 7.7 MG/DL (8.5-10.1); CHLORIDE 101 MMOL/L (99-107); CREATININE 2.87 MG/DL (0.60-1.10); GLUCOSE 85 MG/DL (70-104); LACTATE DEHYDROGENASE 199 U/L (85-227); POTASSIUM 3.6 MMOL/L (3.5-5.1); SODIUM 137 MMOL/L (135-145); TOTAL CARBON DIOXIDE 31.6 MMOL/L (24-32); TOTAL PROTEIN 5.9 G/DL (6.4-8.2); eGFR 22 ML/MIN
[2017-08-28 19:30] VITALS: BP 134/81
[2017-08-28] MEDS: temazepam 15mg capsule PO PRN (22:59)
[2017-08-29] VITALS (9 sets, daily range): BP systolic 130–177; BP diastolic 70–96
[2017-08-29 06:03] LABS: BASOPHILS # (AUTO) 0.1 X10'3 (0-0.2); BASOPHILS % (AUTO) 0.4 % (0-1); EOSINOPHILS # (AUTO) 0.5 X10'3 (0-0.9); EOSINOPHILS % (AUTO) 3.2 % (0-6); HEMATOCRIT 25.4 % (42.0-52.0); HEMOGLOBIN 8.4 g/dl (14.0-17.9); LYMPHOCYTES # (AUTO) 9.5 X10'3 (1.1-4.8); MEAN CORPUSCULAR HEMOGLOBIN 30.3 PG (27.0-31.0); MEAN CORPUSCULAR HGB CONC 32.9 % (33.0-36.5); MEAN CORPUSCULAR VOLUME 92.1 FL (78-98); MONOCYTES % (AUTO) 6.8 % (2-12); NEUTROPHILS # (AUTO) 3.8 X10'3 (1.8-7.7); NEUTROPHILS % (AUTO) 25.6 % (42-75); PLATELET COUNT 162 X10'3 (140-440); RED BLOOD COUNT 2.76 X10'6 (4.70-6.10); RED CELL DISTRIBUTION WIDTH 19.8 % (11.5-14.5); WHITE BLOOD COUNT 14.8 X10'3 (4.5-11.0)
[2017-08-29 06:13] LABS: ALBUMIN 2.8 G/DL (3.4-5.0); ANION GAP 5 (8-16); BLOOD UREA NITROGEN 13 MG/DL (7-18); BUN/CREATININE RATIO 4.2 (5.4-32.0); CALCIUM 8.2 MG/DL (8.5-10.1); CHLORIDE 101 MMOL/L (99-107); CREATININE 3.06 MG/DL (0.60-1.10); GLUCOSE 85 MG/DL (70-104); LACTATE DEHYDROGENASE 210 U/L (85-227); POTASSIUM 3.5 MMOL/L (3.5-5.1); SODIUM 136 MMOL/L (135-145); TOTAL CARBON DIOXIDE 30.5 MMOL/L (24-32); eGFR 20 ML/MIN
[2017-08-29] MEDS: fluticasone/vilanterol 200mcg/25mcg inhaler IH SCH (07:51)
[2017-08-29] MEDS: metoprolol tartrate 25mg tablet PO SCH ×2 (08:18→20:17)
[2017-08-29] MEDS: tamsulosin 0.4mg capsule PO SCH (08:18)
[2017-08-29] MEDS: LACTOBACILLUS RHAMNOSUS GG 15 billion unit sprinkle caps PO SCH (08:18)
[2017-08-29] MEDS: pantoprazole 40mg Tablet.DR PO SCH ×2 (08:18→20:16)
[2017-08-29] MEDS: venlafaxine XR 75mg capsule (Q24H) PO SCH (08:18)
[2017-08-29] MEDS: allopurinol 100mg tablet PO SCH ×2 (08:18→20:17)
[2017-08-29] MEDS ORDERED: calcium chloride inj. 2,000 MG in normal saline 250ml IV soln 250 ML IV ONE (08:30)
[2017-08-29] MEDS ORDERED: citrate dextrose 1000ml IV sol 1,000 ML HE ONE (08:30)
[2017-08-29] MEDS: HYDROcodone/acetaminophen 10/325mg tab PO PRN ×2 (11:45→20:16)
[2017-08-29] MEDS: temazepam 15mg capsule PO PRN (22:17)
[2017-08-30 06:18] LABS: BASOPHILS # (AUTO) 0.1 X10'3 (0-0.2); BASOPHILS % (AUTO) 0.4 % (0-1); EOSINOPHILS # (AUTO) 0.4 X10'3 (0-0.9); HEMATOCRIT 24.6 % (42.0-52.0); HEMOGLOBIN 8.1 g/dl (14.0-17.9); LYMPHOCYTES # (AUTO) 9.5 X10'3 (1.1-4.8); LYMPHOCYTES % (AUTO) 65.3 % (21-51); MEAN CORPUSCULAR HEMOGLOBIN 30.4 PG (27.0-31.0); MEAN CORPUSCULAR HGB CONC 32.8 % (33.0-36.5); MEAN CORPUSCULAR VOLUME 92.6 FL (78-98); MEAN PLATELET VOLUME 7.9 FL (7.4-10.4); MONOCYTES # (AUTO) 0.9 X10'3 (0-0.9); MONOCYTES % (AUTO) 6.5 % (2-12); NEUTROPHILS # (AUTO) 3.6 X10'3 (1.8-7.7); NEUTROPHILS % (AUTO) 24.8 % (42-75); PLATELET COUNT 136 X10'3 (140-440); RED BLOOD COUNT 2.66 X10'6 (4.70-6.10); RED CELL DISTRIBUTION WIDTH 20.1 % (11.5-14.5); WHITE BLOOD COUNT 14.6 X10'3 (4.5-11.0)
[2017-08-30 06:40] LABS: ALBUMIN 2.9 G/DL (3.4-5.0); ANION GAP 5 (8-16); BLOOD UREA NITROGEN 17 MG/DL (7-18); CALCIUM 8.8 MG/DL (8.5-10.1); CHLORIDE 102 MMOL/L (99-107); GLUCOSE 88 MG/DL (70-104); LACTATE DEHYDROGENASE 163 U/L (85-227); POTASSIUM 3.2 MMOL/L (3.5-5.1); SODIUM 139 MMOL/L (135-145); TOTAL CARBON DIOXIDE 32.1 MMOL/L (24-32); eGFR 18 ML/MIN
[2017-08-30] MEDS: metoprolol tartrate 25mg tablet PO SCH ×2 (06:54→20:45)
[2017-08-30 07:00] VITALS: BP 176/94
[2017-08-30] MEDS: fluticasone/vilanterol 200mcg/25mcg inhaler IH SCH (07:47)
[2017-08-30] MEDS: pantoprazole 40mg Tablet.DR PO SCH ×2 (07:55→20:45)
[2017-08-30] MEDS: venlafaxine XR 75mg capsule (Q24H) PO SCH (07:55)
[2017-08-30] MEDS: LACTOBACILLUS RHAMNOSUS GG 15 billion unit sprinkle caps PO SCH (07:55)
[2017-08-30] MEDS: allopurinol 100mg tablet PO SCH ×2 (07:55→20:45)
[2017-08-30] MEDS: tamsulosin 0.4mg capsule PO SCH (07:55)
[2017-08-30] MEDS ORDERED: normal saline 1000ml 250 ML IV PRN (08:04)
[2017-08-30] MEDS ORDERED: heparin 1,000unit/ml 10ml vial 10 ML IV ONE (08:04)
[2017-08-30] MEDS ORDERED: heparin 1,000 units/ml 10ml inj HE ONE ×2 (08:10)
[2017-08-30] MEDS: HYDROcodone/acetaminophen 10/325mg tab PO PRN ×3 (08:53→20:47)
[2017-08-30] MEDS: epoetin 20,000 units/ml inj IV SCH (10:47)
[2017-08-30 11:00] VITALS: BP 127/79
[2017-08-30 20:00] VITALS: BP 121/85
[2017-08-30] MEDS: LORazepam 0.5 MG tablet PO PRN (20:45)
[2017-08-30 23:30] VITALS: BP 156/82
[2017-08-31] MEDS: temazepam 15mg capsule PO PRN (01:34)
[2017-08-31 06:20] LABS: BASOPHILS # (AUTO) 0.1 X10'3 (0-0.2); BASOPHILS % (AUTO) 0.5 % (0-1); EOSINOPHILS # (AUTO) 0.5 X10'3 (0-0.9); HEMATOCRIT 27.1 % (42.0-52.0); HEMOGLOBIN 8.7 g/dl (14.0-17.9); LYMPHOCYTES # (AUTO) 10.2 X10'3 (1.1-4.8); LYMPHOCYTES % (AUTO) 65.2 % (21-51); MEAN CORPUSCULAR HEMOGLOBIN 29.9 PG (27.0-31.0); MEAN CORPUSCULAR VOLUME 93.4 FL (78-98); MEAN PLATELET VOLUME 7.8 FL (7.4-10.4); MONOCYTES % (AUTO) 6.1 % (2-12); NEUTROPHILS % (AUTO) 25.2 % (42-75); PLATELET COUNT 145 X10'3 (140-440); RED CELL DISTRIBUTION WIDTH 20.5 % (11.5-14.5); WHITE BLOOD COUNT 15.7 X10'3 (4.5-11.0)
[2017-08-31 06:29] LABS: ALANINE AMINOTRANSFERASE 21 U/L (12-78); ALBUMIN/GLOBULIN RATIO 1.1 (1.1-1.5); ALKALINE PHOSPHATASE 96 IU/L (46-116); ANION GAP 6 (8-16); ASPARTATE AMINO TRANSFERASE 21 U/L (10-37); BILIRUBIN,TOTAL 1.2 MG/DL (0.1-1.0); BLOOD UREA NITROGEN 10 MG/DL (7-18); CALCIUM 8.4 MG/DL (8.5-10.1); CHLORIDE 103 MMOL/L (99-107); GLUCOSE 85 MG/DL (70-104); LACTATE DEHYDROGENASE 198 U/L (85-227); POTASSIUM 3.4 MMOL/L (3.5-5.1); SODIUM 139 MMOL/L (135-145); TOTAL CARBON DIOXIDE 29.6 MMOL/L (24-32); TOTAL PROTEIN 5.7 G/DL (6.4-8.2); eGFR 26 ML/MIN
[2017-08-31] MEDS ORDERED: calcium chloride inj. 2,000 MG in normal saline 250ml IV soln 250 ML IV ONE (08:00)
[2017-08-31] MEDS ORDERED: citrate dextrose 1000ml IV sol 1,000 ML HE ONE (08:00)
[2017-08-31] MEDS: LACTOBACILLUS RHAMNOSUS GG 15 billion unit sprinkle caps PO SCH (09:19)
[2017-08-31] MEDS: metoprolol tartrate 25mg tablet PO SCH ×2 (09:20→20:14)
[2017-08-31] MEDS: tamsulosin 0.4mg capsule PO SCH (09:20)
[2017-08-31] MEDS: pantoprazole 40mg Tablet.DR PO SCH ×2 (09:20→20:14)
[2017-08-31] MEDS: venlafaxine XR 75mg capsule (Q24H) PO SCH (09:20)
[2017-08-31] MEDS: allopurinol 100mg tablet PO SCH ×2 (09:20→20:15)
[2017-08-31 09:33] VITALS: BP 163/88
[2017-08-31] MEDS: fluticasone/vilanterol 200mcg/25mcg inhaler IH SCH (09:48)
[2017-08-31] MEDS: HYDROcodone/acetaminophen 10/325mg tab PO PRN ×2 (13:06→19:03)
[2017-08-31 13:15] VITALS: BP 160/81
[2017-08-31 19:00] VITALS: BP 155/97
[2017-08-31 23:10] VITALS: BP 161/94
[2017-09-01] MEDS: temazepam 15mg capsule PO PRN (00:08)
[2017-09-01] MEDS: metoprolol tartrate 25mg tablet PO SCH ×2 (06:30→08:06)
[2017-09-01 06:41] LABS: ANION GAP 9 (8-16); BLOOD UREA NITROGEN 17 MG/DL (7-18); BUN/CREATININE RATIO 5.7 (5.4-32.0); CALCIUM 8.7 MG/DL (8.5-10.1); CHLORIDE 104 MMOL/L (99-107); GLUCOSE 84 MG/DL (70-104); LACTATE DEHYDROGENASE 220 U/L (85-227); POTASSIUM 3.5 MMOL/L (3.5-5.1); SODIUM 143 MMOL/L (135-145); TOTAL CARBON DIOXIDE 30.2 MMOL/L (24-32); eGFR 21 ML/MIN
[2017-09-01 07:00] VITALS: BP 172/92
[2017-09-01 07:22] LABS: BASOPHILS # (AUTO) 0.1 X10'3 (0-0.2); BASOPHILS % (AUTO) 0.8 % (0-1); EOSINOPHILS # (AUTO) 0.3 X10'3 (0-0.9); EOSINOPHILS % (AUTO) 2.3 % (0-6); HEMATOCRIT 26.8 % (42.0-52.0); HEMOGLOBIN 9.2 g/dl (14.0-17.9); LYMPHOCYTES # (AUTO) 9.8 X10'3 (1.1-4.8); LYMPHOCYTES % (AUTO) 64.2 % (21-51); MEAN CORPUSCULAR HEMOGLOBIN 31.5 PG (27.0-31.0); MEAN CORPUSCULAR HGB CONC 34.5 % (33.0-36.5); MEAN CORPUSCULAR VOLUME 91.4 FL (78-98); MEAN PLATELET VOLUME 8.3 FL (7.4-10.4); MONOCYTES # (AUTO) 0.8 X10'3 (0-0.9); MONOCYTES % (AUTO) 5.6 % (2-12); NEUTROPHILS # (AUTO) 4.1 X10'3 (1.8-7.7); NEUTROPHILS % (AUTO) 27.1 % (42-75); PLATELET COUNT 153 X10'3 (140-440); RED BLOOD COUNT 2.93 X10'6 (4.70-6.10); RED CELL DISTRIBUTION WIDTH 19.4 % (11.5-14.5); WHITE BLOOD COUNT 15.1 X10'3 (4.5-11.0)
[2017-09-01] MEDS: fluticasone/vilanterol 200mcg/25mcg inhaler IH SCH (08:00)
[2017-09-01] MEDS: epoetin 20,000 units/ml inj IV SCH (08:00)
[2017-09-01] MEDS: LACTOBACILLUS RHAMNOSUS GG 15 billion unit sprinkle caps PO SCH (08:06)
[2017-09-01] MEDS: venlafaxine XR 75mg capsule (Q24H) PO SCH (08:06)
[2017-09-01] MEDS: allopurinol 100mg tablet PO SCH (08:06)
[2017-09-01] MEDS: pantoprazole 40mg Tablet.DR PO SCH (08:06)
[2017-09-01] MEDS: tamsulosin 0.4mg capsule PO SCH (08:06)
[2017-09-01] MEDS: HYDROcodone/acetaminophen 10/325mg tab PO PRN (08:55)
[2017-09-01 11:00] VITALS: BP 157/91
[2017-09-01] MEDS ORDERED: magnesium oxide 400mg tablet PO ONE (11:35)
== END 2017-09-01 13:41 | DRG 673 ==
LOC: ER 13:29 → ED HOLD 16:33 → MED 3N 21:05
PROVIDERS: ADMIT Family Medicine; ATTEND Nurse Practitioner Family
PROC: CT131ZZ Planar Nuclear Medicine Imaging of Kidneys, Ureters and Bladder using Technetium 99m (Tc-99m) (ICD-10-PCS; 2017-08-16)
PROC: 30233N1 Transfusion of Nonautologous Red Blood Cells into Peripheral Vein, Percutaneous Approach (ICD-10-PCS; 2017-08-17)
PROC: 6A551Z3 Pheresis of Plasma, Multiple (ICD-10-PCS; 2017-08-18)
PROC: 5A1D70Z Performance of Urinary Filtration, Intermittent, Less than 6 Hours Per Day (ICD-10-PCS; 2017-08-18)
PROC: 30233L1 Transfusion of Nonautologous Fresh Plasma into Peripheral Vein, Percutaneous Approach (ICD-10-PCS; 2017-08-19)
PROC: 30233K1 Transfusion of Nonautologous Frozen Plasma into Peripheral Vein, Percutaneous Approach (ICD-10-PCS; 2017-08-19)
PROC: 5A1D70Z Performance of Urinary Filtration, Intermittent, Less than 6 Hours Per Day (ICD-10-PCS; 2017-08-19)
PROC: 5A1D70Z Performance of Urinary Filtration, Intermittent, Less than 6 Hours Per Day (ICD-10-PCS; 2017-08-21)
PROC: 0JH63XZ Insertion of Tunneled Vascular Access Device into Chest Subcutaneous Tissue and Fascia, Percutaneous Approach (ICD-10-PCS; principal; 2017-08-23)
PROC: 02H633Z Insertion of Infusion Device into Right Atrium, Percutaneous Approach (ICD-10-PCS; 2017-08-23)
PROC: B244ZZZ Ultrasonography of Right Heart (ICD-10-PCS; 2017-08-23)
PROC: 5A1D70Z Performance of Urinary Filtration, Intermittent, Less than 6 Hours Per Day (ICD-10-PCS; 2017-08-23)
PROC: CT131ZZ Planar Nuclear Medicine Imaging of Kidneys, Ureters and Bladder using Technetium 99m (Tc-99m) (ICD-10-PCS; 2017-08-24)
PROC: 5A1D70Z Performance of Urinary Filtration, Intermittent, Less than 6 Hours Per Day (ICD-10-PCS; 2017-08-25)
PROC: 5A1D70Z Performance of Urinary Filtration, Intermittent, Less than 6 Hours Per Day (ICD-10-PCS; 2017-08-28)
PROC: 5A1D70Z Performance of Urinary Filtration, Intermittent, Less than 6 Hours Per Day (ICD-10-PCS; 2017-08-30)
DX: N17.0 Acute kidney failure with tubular necrosis (principal); D59.3 Hemolytic-uremic syndrome; M31.1 Thrombotic microangiopathy; J18.9 Pneumonia, unspecified organism; M32.9 Systemic lupus erythematosus, unspecified; C91.10 Chronic lymphocytic leukemia of B-cell type not having achieved remission; K81.9 Cholecystitis, unspecified; R17 Unspecified jaundice; N39.0 Urinary tract infection, site not specified; R91.1 Solitary pulmonary nodule; E03.9 Hypothyroidism, unspecified; E87.6 Hypokalemia; G89.29 Other chronic pain; K82.8 Other specified diseases of gallbladder; M19.90 Unspecified osteoarthritis, unspecified site; R16.1 Splenomegaly, not elsewhere classified; I10 Essential (primary) hypertension; I25.10 Atherosclerotic heart disease of native coronary artery without angina pectoris; I73.9 Peripheral vascular disease, unspecified; M10.9 Gout, unspecified; I25.2 Old myocardial infarction; Z89.611 Acquired absence of right leg above knee; Z95.1 Presence of aortocoronary bypass graft; Z87.891 Personal history of nicotine dependence; Z82.49 Family history of ischemic heart disease and other diseases of the circulatory system; Z82.3 Family history of stroke
CPT/HCPCS: 36415; 36558; 36600; 71045; 71046; 71250; 74176; 76700; 76705; 76937; 77001; 78707; 80048; 80053; 81001; 82140; 82272; 82550; 82570; 82595; 82803; 82977; 83010; 83605; 83615; 83690; 83735; 84100; 84145; 84155; 84156; 84165; 84300; 84443; 84550; 84560; 85018; 85025; 85045; 85610; 85651; 85730; 86038; 86160; 86703; 86704; 86705; 86706; 86709; 86803; 86880; 86885; 86900; 86901; 86920; 87040; 87045; 87046; 87070; 87340; 87502; 87503; 90935; 94640; 94760; 97110; 97116; 97161; 97530; 99285; A4353; A4620; A6212; A6213; A6253; A6257; A6258; A6446; A6449; A9562; C1750; C1894; C9113; G0257; J0456; J0696; J0885; J1644; J2001; J2150; J2250; J2405; J2543; J2765; J3010; J7030; P9016; P9059; Q0163

== ENCOUNTER 2021-05-14 05:47 | Day surgery (SDC) | payer MEDICARE, MEDICAID ==
[2021-05-07 12:41] LABS: BASOPHILS # (AUTO) 0.1 X10'3 (0-0.2); BASOPHILS % (AUTO) 0.8 % (0-1); EOSINOPHILS # (AUTO) 0.2 X10'3 (0-0.9); EOSINOPHILS % (AUTO) 1.9 % (0-6); LYMPHOCYTES # (AUTO) 3.2 X10'3 (1.1-4.8); LYMPHOCYTES % (AUTO) 24.9 % (21-51); MEAN CORPUSCULAR HEMOGLOBIN 25.9 PG (27.0-31.0); MEAN CORPUSCULAR HGB CONC 31.8 g/dL (33.0-36.5); MEAN CORPUSCULAR VOLUME 81.4 FL (78-98); MEAN PLATELET VOLUME 8.6 FL (7.4-10.4); MONOCYTES # (AUTO) 1.2 X10'3 (0-0.9); MONOCYTES % (AUTO) 9.4 % (2-12); NEUTROPHILS # (AUTO) 8.1 X10'3 (1.8-7.7); PRE OP HEMATOCRIT 38.8 % (42.0-52.0); PRE OP HEMOGLOBIN 12.3 g/dL (14.0-17.9); PRE OP PLATELET COUNT 288 X10'3 (140-440); PRE OP PROTIME 10.6 SECONDS (9.0-12.0); RED BLOOD COUNT 4.77 X10'6 (4.70-6.10); RED CELL DISTRIBUTION WIDTH 20.1 % (11.5-14.5)
[2021-05-07 12:43] LABS: ALBUMIN 2.5 G/DL (3.4-5.0); ALBUMIN/GLOBULIN RATIO 0.7 (1.1-1.5); ALKALINE PHOSPHATASE 207 IU/L (46-116); BLOOD UREA NITROGEN 24 MG/DL (7-18); BUN/CREATININE RATIO 16.8 (5.4-32.0); CALCIUM 8.7 MG/DL (8.5-10.1); CHLORIDE 106 MMOL/L (99-107); CREATININE 1.43 MG/DL (0.60-1.10); PRE OP ALT 66 U/L (30-65); PRE OP ANION GAP 11 (8-16); PRE OP AST 101 U/L (10-37); PRE OP BILIRUB, TOTAL 0.8 MG/DL (0.0-1.0); PRE OP GLUCOSE 84 MG/DL (70-104); PRE OP SODIUM 141 MMOL/L (135-145); TOTAL CARBON DIOXIDE 24.2 MMOL/L (24-32); TOTAL PROTEIN 5.9 G/DL (6.4-8.2); eGFR 48 ML/MIN
[2021-05-07 14:11] LABS: PLATELET ESTIMATE NORMAL
[2021-05-07 14:12] LABS: ANISOCYTOSIS 3+; BURR CELLS 1+; POLYCHROMASIA FEW; TARGET CELLS 1+
[~2021-05-14] VITALS: Ht 165.1 cm; Wt 76.2 kg
[~2021-05-14 05:47] MED LIST changes: +ACYC-126 PO; +BUDE10.2 INH; +CHOL100017 PO; -CLOP75TA15 PO; -CYA500T PO; +CYAN500T71 PO; +DOCUMENT DATE & TIME OF BETA-BLOCKER PO ONE; -DOXA1TAB2 PO; +DULO60CA65 PO; -ESCI10TA54 PO; +FLO0.4C; -HYDR-565 PO; +IBRU280T; +LOP12.5T PO; +LORA10TA7 PO; -METO25TA6 PO; +NITR0.4T48 SL; -OMEG1CAP13 PO; +OMEP-50 PO; +OXYC1TAB17 PO; +albuterol 2.5 MG/3 ML nebule NEB ONE; +cefazolin/dext.iso 2gm/100ml IV ONE; +famotidine 20mg tablet PO ONE; +ringers solution, lacted 1,000 ML IV SCH
[2021-05-14] MEDS ORDERED: BUPIVAcaine/PF 2.5mg/ml (0.25%) 10ml vial ONE ×3 (06:43→08:34)
[2021-05-14 06:45] VITALS: BP 116/61
[2021-05-14] MEDS ORDERED: LIDOcaine 1% 30ml preserv. free vial ONE (07:44)
[2021-05-14] MEDS ORDERED: fentaNYL/PF 50MCG/1 ML 2ML syringe ONE (07:57)
[2021-05-14] MEDS ORDERED: midazolam 1 mg/ML 2ml injection ONE (07:58)
[2021-05-14] MEDS ORDERED: ketorolac trometh. 30mg/ml inj. ONE (07:59)
[2021-05-14 08:42] VITALS: BP 81/64
--- NOTE | 2021-05-14 08:42 | NUR ---
Received from OR via [facility] , accompanied by Anesthesiologist IZA and report given by Anesthesiolgist. LEFT WRIST DRESSING IS CDI. VSS. DENIES PAIN. 20GP IV IN RIGHT HAND RU [place] LR AT 100. Addendum: 05/14/21 at 0852 by Alok Torres RN, RN Amended: Links added.
[2021-05-14 08:52] VITALS: BP 93/63
[2021-05-14 09:02] VITALS: BP 94/64
[2021-05-14 09:12] VITALS: BP 97/61
--- NOTE | 2021-05-14 09:22 | NUR ---
DRESSED WITH ASSISTANCE AND TRANSFERED TO WHEELCHAIR AND TAKEN TO PERSONAL VEHICLE WHERE SPOUSE DROVE PATIENT HOME. DRESSING TO LEFT ELBOW AND WRIST ARE CDI AND GIVEN ALL DC INSTRUCTIONS WELL. SHOWED GOOD UNDERSTANDING. Addendum: 05/14/21 at 0923 by Alok Torres RN, RN Amended: Links added.
== END 2021-05-14 09:22 | disposition home or self-care (01) ==
LOC: PAS 05:47
PROVIDERS: ATTEND Orthopaedic Surgery Hand Surgery
DX: G56.02 Carpal tunnel syndrome, left upper limb (principal); G56.22 Lesion of ulnar nerve, left upper limb; J44.9 Chronic obstructive pulmonary disease, unspecified; I10 Essential (primary) hypertension; M10.9 Gout, unspecified; N40.0 Benign prostatic hyperplasia without lower urinary tract symptoms; K21.9 Gastro-esophageal reflux disease without esophagitis; F32.9 Major depressive disorder, single episode, unspecified; Z85.6 Personal history of leukemia; Z79.899 Other long term (current) drug therapy; Z87.891 Personal history of nicotine dependence; Z95.1 Presence of aortocoronary bypass graft; Z98.890 Other specified postprocedural states; Z89.611 Acquired absence of right leg above knee; Z20.822 Contact with and (suspected) exposure to COVID-19; Z79.01 Long term (current) use of anticoagulants
CPT/HCPCS: 36415; 64718; 64721; 71046; 80053; 82948; 85025; 85610; 85730; 93005; J1885; J2001; J2250; J3010; J3490; U0003; U0005; Z7506; Z7512; 85008; A4215; A6449; J7120